=== PATIENT | female | born 1995 | race Caucasian/White ===

== ENCOUNTER 2020-01-18 12:47 | Emergency (ER) | payer BC, SELFPAY ==
--- NOTE | ~2020-01-18 | US_ITS ---
EXAMINATION: US venous doppler LE RT EXAM DATE: 01/18/2020 13:18 INDICATION: Right leg pain. TECHNIQUE: Multiple grayscale, color flow and Doppler images of the right lower extremity deep venous system were obtained and reviewed. There is no prior study for comparison. FINDINGS: The right common femoral, femoral and profunda veins demonstrate normal color flow, respira tory variation, augmentation and compressibility. Compressibility, color flow confirmed within the r ight popliteal, posterior tibial, peroneal, and greater saphenous veins. IMPRESSION: 1. No right lower extremity deep venous thrombosis. Reviewed, dictated and finalized at location A. S CLERK FOOD
[2020-01-18 12:49] VITALS: RESP 16
[2020-01-18 12:54] VITALS: BP 134/90; PULSE 68; RESP 20; TEMP 36.4; O2SAT 100
--- NOTE | 2020-01-18 14:29 | ED.LOWEXIN ---
HPI - Extremity Injury (Lower) General Chief Complaint: Extremity Injury, Lower Stated Complaint: r/o dvt Time Seen by Provider: 01/18/20 13:59 Source: patient Mode of arrival: ambulatory Limitations: no limitations History of Present Illness HPI Narrative: Patient is a 24-year-old female who presents to emergency department for evaluation of right calf pain noting mid calf pain that began Saturday after working out at the gym had concern for DVT notes constant aching pain worse with weightbearing activity and movement denies other injuries or complaints and on arrival is in no distress Related Data Home Medications Medication Instructions Recorded Confirmed etonogestrel-ethinyl estradiol 1 vag ring VAGINAL ONCE 01/18/20 01/18/20 [NuvaRing] Allergies Allergy/AdvReac Type Severity Reaction Status Date / Time Penicillins Allergy Unknown Rash Verified 01/18/20 13:57 Sulfa (Sulfonamide Allergy Unknown Rash Verified 01/18/20 13:57 Antibiotics) metronidazole [From Flagyl] Allergy Rash Verified 01/18/20 13:57 Review of Systems Review of Systems: All systems reviewed & are unremarkable except as noted in HPI and below PMFSH Social History Social History (Updated 01/18/20 @ 14:34 by Jordan Abbott PA-C) Smoking status: Never smoker Exam Narrative: Exam Narrative: GENERAL: Well-appearing, well-nourished, and in no acute distress. HEAD: Normocephalic, atraumatic. EYES: PERRLA and EOMI. ENT: Nares clear, no rhinorrhea or epistaxis. Mucous membranes moist. CHEST: Clear to auscultation. No respiratory distress. No wheezes rales or rhonchi HEART: Regular rate and rhythm. No murmur heard. Normal peripheral pulses. EXTREMITIES: Normal range of motion. No edema. Tenderness of the right calf SKIN: Warm, dry, no rash. NEURO: No focal deficits. Alert and oriented x3. Cranial nerves II through XII grossly intact. Normal speech and gait. Neurovascularly intact PSYCH: Normal mood and affect. Course Course Emergency Course: Patient in the room in no distress aware of case findings treatment plan and diagnosis Vital Signs Vital signs: Vital Signs Respiratory Rate 16 01/18/20 12:49 Temperature 97.5 F L 01/18/20 12:54 Pulse Rate 68 01/18/20 12:54 Respiratory Rate 20 02/17/20 12:54 Blood Pressure 134/90 01/18/20 12:54 Pulse Oximetry 100 01/18/20 12:54 MDM - Extremity Injury (Lower) MDM Narrative Medical decision making narrative: Patients injury or pain is consistent with musculoskeletal etiology. No signs of neurological or vascular compromise on exam. Compartments and tisues are soft without signs of compartment syndrome. Pain is felt appropriate for further evaluation on an outpatient basis. Imaging Data Radiologist's impression: ITS Impressions Venous Doppler Study 01/18/20 13:21 IMPRESSION: 1. No right lower extremity deep venous thrombosis. Discharge Plan Discharge Clinical Impression: Pain of right calf Patient Disposition: Home, Self-Care Condition: Stable Instructions: Antibiotic Form, Leg Pain (ED) Additional Instructions: Limited weight on the affected leg until able to bear weight without pain. Ice and elevate extremity. Pain medication as needed and directed. Follow up with your doctor for further care in the next 7 days. Return if symptoms worsen or concerns or any increase in redness swelling pain or fever over 100.5. Prescriptions: No Action etonogestrel-ethinyl estradiol [NuvaRing] 0.12-0.015 mg/24 hr Ring 1 vag ring VAGINAL ONCE RF: 0 Follow-up/Referrals: Leo,MD Stone [Primary Care Provider] - Stand Alone Forms: Work/School Release IP
== END 2020-01-18 14:50 | disposition home or self-care (01) ==
PROVIDERS: Emergency Provider Family Medicine; PCP Family Medicine
DX: M79.661 Pain in right lower leg (principal)
CPT/HCPCS: 93971; 99284

== ENCOUNTER 2021-11-19 12:04 | Emergency (ER) | payer BC, SELFPAY ==
--- NOTE | ~2021-11-19 | XR_ITS ---
EXAMINATION: XR hand RT min 3V DATE: 11/19/2021 12:24 INDICATION: Right hand injury and pain. TECHNIQUE: 3 views of right hand were obtained. COMPARISON: None. FINDINGS: Bone alignment is normal. No fracture. Joint spaces are well maintained. IMPRESSION: 1. Normal right hand. Reviewed, dictated and finalized at location A. LE CATCHER IMPRESSION: 1. Normal right hand.
[2021-11-19 12:24] VITALS: BP 133/83; PULSE 64; RESP 16; TEMP 36.6; O2SAT 100
--- NOTE | 2021-11-19 12:40 | ED.UPPEXIN ---
HPI - Extremity Injury (Upper) General Chief Complaint: Extremity Injury, Upper Stated Complaint: Right hand injury Source: patient and RN notes reviewed Limitations: no limitations History of Present Illness HPI narrative: The right-handed patient, previously healthy, presents with right hand injury. He states prior to arrival she was moving furnishings, and pinched her hand between a cabinet and truck wall. She complains of mild pain, decreased ROM and swelling especially at the fifth MCP J that is worse with motion, better with elevation or rest. No bleeding-but there is some mild swelling and rotational deformity of the small finger. Related Data Allergies Allergy/AdvReac Type Severity Reaction Status Date / Time Penicillins Allergy Unknown Rash Verified 11/19/21 12:11 Sulfa (Sulfonamide Allergy Unknown Rash Verified 11/19/21 12:11 Antibiotics) metronidazole [From Flagyl] Allergy Rash Verified 11/19/21 12:11 Review of Systems Review of Systems: General/Constitutional: No weight loss,fever Eyes: N0: Redness,discharge Ears/Nose/Throat: No: Epistaxis,ear discharge Respiratory: Denies: Hemoptysis Gastrointestinal: No Vomiting, Bleeding-rectal Skin: No Lumps, eruption Neurologic: No Focal Weakness,Sz Hematologic: Denies: Petechiae/Purpura Psychiatric: No: Suicida ideationl All Other Systems: Reviewed and Negative [facility] Social History Social History (Updated 01/18/20 @ 14:34 by Jordan Abbott PA-C) Smoking status: Never smoker Comments At time of signature, agree with nursing past medical, surgical, social and family history. There is no relevant family history pertinent to the presenting complaint Exam Narrative: General Appearance: Well appearing, conjunctiva clear Mouth/Throat: Normal appearing, Normal lips, Supple Respiratory: Airway patent, No respiratory distress MS-hand: Normal strength (mostly intact, limited flexion/extension by pain), Tenderness (fifth MCPJ and proximal MC, with mild decreased ROM), Swelling (MCP J fifth), Other (no anterior drawer, no collateral laxity, some rotational deformity, swelling) Skin: Warm, Dry, Normal color Neurological: A&O x3, , Normal affect Course Course Emergency Course: Films visualized, interpreted by radiologist, agree, normal see report Vital Signs Vital signs: Vital Signs Temperature 97.9 F 11/19/21 12:24 Pulse Rate 64 11/19/21 12:24 Respiratory Rate 16 11/19/21 12:24 Blood Pressure 133/83 11/19/21 12:24 Pulse Oximetry 100 11/19/21 12:24 Temperature 97.9 F 11/19/21 12:24 Pulse Rate 64 11/19/21 12:24 Respiratory Rate 16 11/19/21 12:24 Blood Pressure 133/83 11/19/21 12:24 Pulse Oximetry 100 11/19/21 12:24 Discharge Plan Discharge Clinical Impression: Contusion of hand, right Qualifiers: Encounter type: initial encounter Qualified Code(s): S60.221A - Contusion of right hand, initial encounter Patient Disposition: Home, Self-Care Condition: Stable Instructions: Hand Sprain (ED) Additional Instructions: You may use OTC pain medicines; may also try ice the first half week then heat See PMD or orthopedics in follow-up Prescriptions: New tramadol 50 mg tablet 50 - 75 mg PO BID PRN (Reason: pain) Qty: 20 RF: 0 Follow-up/Referrals: PHYSICIAN,ADMISSIONS NURSE [Primary Care Provider] -
== END 2021-11-19 12:48 | disposition home or self-care (01) ==
PROVIDERS: Emergency Provider Emergency Medicine
DX: S60.221A Contusion of right hand, initial encounter (principal); X58.XXXA Exposure to other specified factors, initial encounter
CPT/HCPCS: 73130; 99213; G0463

== ENCOUNTER 2021-11-26 18:14 | Emergency (ER) | payer BC, SELFPAY ==
--- NOTE | ~2021-11-26 | CT_ITS ---
EXAMINATION: CT hand RT wo con DATE: 11/26/2021 19:20 INDICATION: Smashed right hand between door and an end table with bruising at both sides of the hand. TECHNIQUE: High resolution computed tomography (CT) of the right hand and wrist was performed without intravenous contrast. Additional sagittal and coronal reconstructions were performed. Automated expo sure control and iterative reconstruction technique were employed. The dose-length product was 520.24 mGy-cm. COMPARISON: Radiograph dated 11/19/2021 FINDINGS: Bone alignment is normal. No fracture. Joint spaces are normal. 14 x 7 x 9 mm soft tissue density in the palmar subcutaneous fat situated between the fourth and fifth metacarpophalangeal joints. Soft ti ssues are otherwise unremarkable. IMPRESSION: 1. No osseous abnormality. 2. 14 x 7 x 5 mm soft tissue density in the subcutaneous tissues situated between the palmar aspect o f the fourth and fifth metacarpophalangeal joints which in the setting of recent trauma suggests a sm all hematoma. Reviewed, dictated and finalized at location H. RAL OFFICE REPAIRER IMPRESSION: 1. No osseous abnormality. 2. 14 x 7 x 5 mm soft tissue density in the subcutaneous tissues situated betwe en the palmar aspect of the fourth and fifth metacarpophalangeal joints which i n the setting of recent trauma suggests a small hematoma.
[2021-11-26 18:21] VITALS: BP 149/94; PULSE 88; RESP 12; TEMP 36.8; O2SAT 99
--- NOTE | 2021-11-26 19:17 | ED.GENADULT ---
HPI - General Adult General Chief complaint: Extremity Injury, Upper Stated complaint: hand injury Time Seen by Provider: 11/26/21 18:39 Source: patient Mode of arrival: ambulatory Limitations: no limitations History of Present Illness HPI narrative: Patient presents for evaluation of right hand pain. She indicates on 19 November she got her hand caught between an end table and a truck wall when moving furniture. She was seen at [facility] and had an x ray which was normal. She states she received a script for tramadol but did not take the medication because she does not like the way tramadol makes her feel. She continues to have pain in the third through fifth digits of the right hand. Pain is constant, shooting, rate 8-10/10 in severity. Reports numbness and tingling shooting from her fourth and fifth digits of her right upper extremity as well as pain that shoots in the direction. She is taking ibuprofen for her symptoms. She now reports bruising over the dorsal and palmar aspect of the right hand. She attempted to make a splint at home with popsicle sticks taped her fourth and fifth digit together. She is right hand dominant. No additional complaints or concerns. Related Data Allergies Allergy/AdvReac Type Severity Reaction Status Date / Time Penicillins Allergy Unknown Rash Verified 11/26/21 18:32 Sulfa (Sulfonamide Allergy Unknown Rash Verified 11/26/21 18:32 Antibiotics) metronidazole [From Flagyl] Allergy Rash Verified 11/26/21 18:32 Review of Systems Review of Systems: CONSTITUTIONAL: Denies fever, chills, or sweats. EYES: Denies visual changes, redness, or discharge. ENT: Denies rhinorrhea, congestion, sore throat, or otalgia. CARDIOVASCULAR: Denies chest pain, palpitations, or edema. RESPIRATORY: Denies cough or dyspnea. GASTROINTESTINAL: Denies abdominal pain, nausea, vomiting, or diarrhea. GENITOURINARY: Denies dysuria or hematuria. SKIN: Reports bruising to the right hand MUSCULOSKELETAL: Pain in the right hand, most prominent in the fourth and fifth digits. NEUROLOGIC: Reports numbness and tingling in the fourth and fifth digits of the right hand moving proximally up the extremity. Denies headache, dizziness, or weakness. PSYCHIATRIC: Denies anxiety or depression. 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 HEAD: Normocephalic, atraumatic. EYES: PERRLA and EOMI. ENT: Nares clear, no rhinorrhea or epistaxis. Mucous membranes moist. Oropharynx without tonsillar hypertrophy exudate or other lesions. Bilateral TMs pearly cabrera nonbulging NECK: Supple. No adenopathy or masses. No carotid bruits or JVD CHEST: Clear to auscultation. No respiratory distress. No wheezes rales or rhonchi HEART: Regular rate and rhythm. No murmur heard. Normal peripheral pulses. ABDOMEN: Soft, nontender, nondistended, normal active bowel sounds. EXTREMITIES: Tenderness over the MCP of the third, fourth, fifth digits of the right hand and throughout the proximal phalanges of third, fourth, fifth digits. Refuses to perform full hand toll line mechanic secondary to pain. There is soft tissue swelling noted overlying the palmar aspect of the
--- NOTE | 2021-11-26 19:19 | PC.NURSE ---
Pt in XRAY at this time.
[2021-11-26 19:34] VITALS: BP 133/89; PULSE 80; RESP 17; O2SAT 98
[2021-11-26] MEDS: KETOROLAC (*BKC) 60 MG/2 ML VIAL IM (19:43)
[2021-11-26 20:30] VITALS: BP 137/82; PULSE 80; RESP 15; O2SAT 99
== END 2021-11-26 20:32 | disposition home or self-care (01) ==
PROVIDERS: Emergency Provider Nurse Practitioner
DX: S60.221A Contusion of right hand, initial encounter (principal); W23.0XXA Caught, crushed, jammed, or pinched between moving objects, initial encounter
CPT/HCPCS: 73200; 81025; 96372; 99284; J1885

== ENCOUNTER 2022-01-31 01:42 | Emergency (ER) | payer BC, SELFPAY ==
[2022-01-31] VITALS (8 sets, daily range): BP systolic 130–153; BP diastolic 82–107; PULSE 64–73; RESP 15–18; TEMP 36.4–36.9; O2SAT 98–100
--- NOTE | 2022-01-31 02:14 | ECG_ITS ---
Measurements Intervals [place] Rate: 69 P: 46 NM: 151 QRS: 1 QRSD: 98 T: -4 QT: 364 QTc: 392 Interpretive Statements SINUS RHYTHM MODERATE VOLTAGE CRITERIA FOR LVH, CONSIDER NORMAL VARIANT [MEETS CRITERIA IN ONE OF: R(aVL), S(V1), R(V5), R(V5/V6)+S(V1)] ABNORMAL EKG Electronically Signed On 01-31-2022 9:08:03 INSURANCE VERIFICATION REP by Erick Roberts M.D.
[2022-01-31] MEDS: SODIUM CHLORIDE 0.9% IV 1,000 ML 999 ML IV CONT (02:39)
[2022-01-31 02:47] LABS: Basophils Absolute Auto 0.1 K/mm3 (0.0-0.1); Basophils Percent Auto 0.5 % (0.2-1.2); Eosinophils Absolute Auto 0.1 K/mm3 (0-0.3); Eosinophils Percent Auto 1.2 % (0-4.4); Hematocrit 39.4 % (37.0-47.0); Hemoglobin 13.6 g/dL (12.0-15.0); Immature Granulocyte Absolute 0.05 K/mm3 (0.00-0.031); Immature Granulocyte Percent A 0.5 % (0-0.5); Lymphocytes Absolute Auto 2.81 K/mm3 (0.9-3.2); Lymphocytes Percent Auto 28.6 % (18.3-44.2); Mean Corpuscular HGB Conc 34.5 g/dl (32-36); Mean Corpuscular Hemoglobin 29.1 pg (26-34); Mean Corpuscular Volume 84.4 fl (80-100); Mean Platelet Volume 10.6 fl (7.4-10.4); Monocytes Absolute Auto 0.7 K/mm3 (0.1-0.6); Monocytes Percent Auto 7.5 % (2.6-8.5); Neutrophils Absolute Auto 6.1 K/mm3 (1.3-6.7); Neutrophils Percent Auto 61.7 % (45.5-73.1); Platelet Count Result 253 k/mm3 (150-375); Red Blood Count 4.67 M/mm3 (4.2-5.4); Red Cell Distribution Width 12.2 % (11.5-14.5); White Blood Count 9.8 K/mm3 (4.5-10.0)
[2022-01-31 03:07] LABS: Alanine Aminotransferase 18 U/L (4-35); Albumin Level 4.6 g/dL (3.5-5.1); Alkaline Phosphatase 67 U/L (38-126); Anion Gap 7 mmol/L (8-16); Aspartate Amino Transferase 27 U/L (14-36); Bilirubin,Total 0.5 mg/dL (0.2-1.3); Blood Urea Nitrogen 11 mg/dL (7-17); Carbon Dioxide 25 mmol/L (22-30); Chloride 104 mmol/L (98-107); Estimated CRCL calculation 163 ml/min; Estimated Glomerular Filt Rate > 60; Glucose 93 mg/dL (65-110); Sodium 136 mmol/L (137-145)
--- NOTE | 2022-01-31 03:39 | ED.DIZZY ---
HPI - Dizziness General Chief Complaint: Dizziness Stated Complaint: Dizziness, Limp Numbness Time Seen by Provider: 01/31/22 03:33 Source: patient History of Present Illness HPI Narrative: Patient presents with dizziness. Reports she was at work standing down and stood up and felt dizzy with some numbness in her fingers. She sat down for approximately 30 minutes and her symptoms did not resolve so she came to the ER for evaluation. She has a sensation of feeling like she is rocking more she is in a chair that is spinning. She denies any nausea or vomiting reports bilateral paresthesias but denies any focal numbness or weakness she denies any headache or changes in vision. She denies any chest pain or shortness of breath. Reports her symptoms started improved on arrival to the ER Related Data Allergies Allergy/AdvReac Type Severity Reaction Status Date / Time Penicillins Allergy Unknown Rash Verified 01/31/22 01:55 Sulfa (Sulfonamide Allergy Unknown Rash Verified 01/31/22 01:55 Antibiotics) metronidazole [From Flagyl] Allergy Rash Verified 01/31/22 01:55 Review of Systems Review of Systems: CONSTITUTIONAL: Denies fever, chills, or sweats. EYES: Denies visual changes, redness, or discharge. ENT: Denies rhinorrhea, congestion, sore throat, or otalgia. CARDIOVASCULAR: Denies chest pain, palpitations, or edema. RESPIRATORY: Denies cough or dyspnea. GASTROINTESTINAL: Denies abdominal pain, nausea, vomiting, or diarrhea. GENITOURINARY: Denies dysuria or hematuria. SKIN: Denies rash or itching. MUSCULOSKELETAL: Denies back pain, joint pain, or myalgia. NEUROLOGIC: Denies headache, numbness, or weakness. PSYCHIATRIC: Denies anxiety or depression. 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 HEAD: Normocephalic, atraumatic. EYES: PERRLA and EOMI. ENT: Nares clear, no rhinorrhea or epistaxis. Mucous membranes moist. NECK: Supple. No masses. No JVD EXTREMITIES: Normal range of motion. No edema. SKIN: Warm, dry, no rash. NEURO: Cranial nerves II through XII are intact patient has 5 out of 5 strength in all extremities sensation intact to light touch in all extremities no dysdiadochokinesia no dysmetria on [id number] alert and oriented x3. PSYCH: Normal mood and affect. Course Vital Signs Vital signs: Vital Signs Temperature 36.9 C 01/31/22 01:49 Pulse Rate 73 01/31/22 01:49 Respiratory Rate 18 01/31/22 01:49 Blood Pressure 153/107 H 01/31/22 01:49 Pulse Oximetry 100 01/31/22 01:49 Temperature 36.4 C L 01/31/22 04:14 Pulse Rate 68 01/31/22 04:14 Respiratory Rate 16 01/31/22 04:14 Blood Pressure 130/85 01/31/22 04:14 Pulse Oximetry 98 01/31/22 04:14 MDM - Dizziness MDM Narrative Medical decision making narrative: H&P as above, vss, pt looks clinically well, exam without focal neurological deficits, labs clinically unremarkable, additional labs/img considered, symptomatic relief available as needed, on reevaluation pt continues to looks clinically well. Suspect peripheral vertigo, dns CVA, severe sepsis, severe dehydration. plan to tx/monitor as op w/ pcm f/u findings/plan discussed with pt, pt agree/comforta
[2022-01-31] MEDS: MECLIZINE HCL 25 MG TABLET PO (03:55)
== END 2022-01-31 04:17 | disposition home or self-care (01) ==
PROVIDERS: Emergency Provider Emergency Medicine
DX: R42 Dizziness and giddiness (principal); R94.31 Abnormal electrocardiogram [ECG] [EKG]
CPT/HCPCS: 36415; 80053; 81025; 85025; 93005; 96360; 99283; A9270; J7030

== ENCOUNTER 2022-03-21 03:52 | Emergency (ER) | payer SELFPAY ==
[2022-03-21 03:58] VITALS: BP 145/90; PULSE 80; RESP 18; TEMP 36.6; O2SAT 100
[2022-03-21 04:35] LABS: Basophils Percent Auto 0.3 % (0.2-1.2); Eosinophils Absolute Auto 0.1 K/mm3 (0-0.3); Eosinophils Percent Auto 1.2 % (0-4.4); Hematocrit 40.1 % (37.0-47.0); Hemoglobin 13.3 g/dL (12.0-15.0); Immature Granulocyte Absolute 0.15 K/mm3 (0.00-0.031); Immature Granulocyte Percent A 1.3 % (0-0.5); Lymphocytes Absolute Auto 3.38 K/mm3 (0.9-3.2); Lymphocytes Percent Auto 29.5 % (18.3-44.2); Mean Corpuscular HGB Conc 33.2 g/dl (32-36); Mean Corpuscular Hemoglobin 28.7 pg (26-34); Mean Corpuscular Volume 86.6 fl (80-100); Mean Platelet Volume 10.6 fl (7.4-10.4); Monocytes Absolute Auto 0.8 K/mm3 (0.1-0.6); Monocytes Percent Auto 6.9 % (2.6-8.5); Neutrophils Percent Auto 60.8 % (45.5-73.1); Platelet Count Result 265 k/mm3 (150-375); Red Blood Count 4.63 M/mm3 (4.2-5.4); White Blood Count 11.5 K/mm3 (4.5-10.0)
[2022-03-21 04:41] LABS: Alanine Aminotransferase 19 U/L (4-35); Albumin Level 4.2 g/dL (3.5-5.1); Alkaline Phosphatase 59 U/L (38-126); Anion Gap 8 mmol/L (8-16); Aspartate Amino Transferase 21 U/L (14-36); Bilirubin,Total 0.5 mg/dL (0.2-1.3); Blood Urea Nitrogen 5 mg/dL (7-17); Calcium 8.8 mg/dL (8.4-10.2); Carbon Dioxide 21 mmol/L (22-30); Chloride 105 mmol/L (98-107); Estimated CRCL calculation 203 ml/min; Estimated Glomerular Filt Rate > 60; Glucose 97 mg/dL (65-110); Potassium 3.9 mmol/L (3.4-5.0); Sodium 134 mmol/L (137-145)
[2022-03-21 04:45] LABS: INR 1.1; Prothrombin Time 13.4 Seconds (11.1-14.7)
[2022-03-21 04:46] LABS: Partial Thromboplastin Time 28.9 SECONDS (22.3-36.8)
[2022-03-21 05:07] LABS: Add Urine Microscopic? YES; Appearance Urine Clear (Clear); Bilirubin Urine Negative (Negative); Blood Urine 3+ (Negative); Color Urine Yellow (Yellow); Glucose Urine UA Negative (Negative); Ketones Urine Negative (Negative); Leukocyte Esterase Ur Negative LEU/UL (Negative); Nitrate Urine Negative (Negative); Protein Urine Trace mg/dL (Negative); Specific Grav Ur 1.025 (1.001-1.035); Urobilinogen Urine 0.2 mg/dL (<2.0)
--- NOTE | 2022-03-21 05:08 | ED.BACK ---
HPI - Back Pain/Injury General Chief Complaint: Vaginal Bleeding Stated Complaint: 10 weeks preg with bright red bleeding Time Seen by Provider: 03/21/22 04:03 Source: patient, family and RN notes reviewed Mode of arrival: ambulatory Limitations: no limitations History of Present Illness HPI Narrative: 26-year-old female that is approximately 10 weeks and has follow-up with [facility] presents to the emergency department for evaluation of acute onset of vaginal bleeding tonight. Patient states she was having sexual intercourse when she had onset of bright red blood per vagina. Patient states since the initial bleeding that the bleeding has since improved. Patient does have a prior ultrasound confirming IUP. Patient denies any pain or cramping with this bleeding. Patient reports normal vaginal sex without any other insertions. Patient believes her blood type is a positive but was not completely sure. Related Data Allergies Allergy/AdvReac Type Severity Reaction Status Date / Time Penicillins Allergy Unknown Rash Verified 01/31/22 01:55 Sulfa (Sulfonamide Allergy Unknown Rash Verified 01/31/22 01:55 Antibiotics) metronidazole [From Flagyl] Allergy Rash Verified 01/31/22 01:55 Review of Systems Review of Systems: CONSTITUTIONAL: Denies fever, chills, or sweats. EYES: Denies visual changes, redness, or discharge. CARDIOVASCULAR: Denies chest pain, palpitations, or edema. RESPIRATORY: Denies cough or dyspnea. GASTROINTESTINAL: See HPI GENITOURINARY: See HPI SKIN: Denies rash or itching. MUSCULOSKELETAL: Denies back pain, joint pain, or myalgia. NEUROLOGIC: Denies headache, numbness, or weakness. 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 HEAD: normocephalic, atraumatic. EYES: PERRLA/EOMI, conjunctivae clear. NOSE: Normal no drainage RESPIRATORY: Airway patent, respirations nonlabored CARDIOVASCULAR: Regular rate and rhythm without murmurs rubs or gallops. ABDOMINAL: Soft, nontender, nondistended, normal bowel sounds. On pelvic ultrasound patient did have a visualized heart beat but was unable to be measured by M-mode ultrasound. On pelvic exam patient had a small amount of vaginal bleeding coming from the cervix with no active hemorrhage. No evidence of vaginal wall injury. MUSCULOSKELETAL: Moves all extremities. Strength/ROM intact, No edema, No calf tenderness. SKIN: Warm, dry. Normal Color Course Course Emergency Course: Patient's blood type was O+. Patient was encouraged to have close follow-up with DENTAL PRACTICE MANAGER. All question concerns were addressed. Vital Signs Vital signs: Vital Signs Temperature 97.8 F 03/21/22 03:58 Pulse Rate 80 03/21/22 03:58 Respiratory Rate 18 03/21/22 03:58 Blood Pressure 145/90 H 03/21/22 03:58 Pulse Oximetry 100 03/21/22 03:58 Temperature 97.8 F 03/21/22 03:58 Pulse Rate 80 03/21/22 05:55 Respiratory Rate 16 03/21/22 05:55 Blood Pressure 130/72 03/21/22 05:55 Pulse Oximetry 100 03/21/22 05:55 MDM - Back Pain/Injury Lab Data Attestation: I reviewed the patient's lab results. Result diagrams: 03/21/22 04:17 03/21/22 04:17 Labs: Lab Results 03/21/22 03/21/22 03/21/22 Range/Units
[2022-03-21 05:16] LABS: Bacteria Urine Trace /hpf; Mucus Urine Moderate /lpf; RBC Urine >75 /hpf (0-2); Squamous Epithelial Cell Urine Rare /hpf (Few); WBC Urine 0-3 /hpf
[2022-03-21 05:55] VITALS: BP 130/72; PULSE 80; RESP 16; O2SAT 100
== END 2022-03-21 05:58 | disposition home or self-care (01) ==
PROVIDERS: Emergency Provider Emergency Medicine
DX: O20.9 Hemorrhage in early pregnancy, unspecified (principal); Z3A.10 10 weeks gestation of pregnancy
CPT/HCPCS: 36415; 80053; 81001; 84702; 85025; 85610; 85730; 86900; 86901; 99283

== ENCOUNTER 2024-05-13 12:45 | Outpatient (CLI) | payer BC, SELFPAY ==
--- NOTE | ~2024-05-13 | MR_ITS ---
MRI of the right knee Clinical history: Pain Technique: Coronal proton density and proton density-weighted images, sagittal proton-density and T2 fat-sat images, and axial proton-density fat-saturated images were acquired. Findings: Anterior and posterior cruciate ligaments are intact. Medial collateral ligament and the la teral collateral ligament conflux are intact. Popliteus tendon is intact. Medial and lateral menisci are intact, without evidence of tear. Articular cartilage is well preserved throughout the knee. Bone marrow signals are unremarkable. Extensor mechanism is intact. No joint effusion or Mcneill's cyst. There is a ganglion cyst at the post erior medial aspect of the knee, measuring 3.2 x 1.2 x 2.6 cm in size Impression: 3.2 x 1.2 x 2.6 ganglion cyst or bursa at the posterior medial aspect of the knee at the level of the distal femur, as detailed above. No other significant findings. Reviewed, dictated and finalized at [facility]. Impression: 3.2 x 1.2 x 2.6 ganglion cyst or bursa at the posterior medial aspect of the kn ee at the level of the distal femur, as detailed above. No other significant findings.
== END 2024-05-13 12:46 ==
LOC: MICIMG 12:47
PROVIDERS: PCP Nurse Practitioner Family; Visit Provider Nurse Practitioner Family
DX: M25.561 Pain in right knee (principal)
CPT/HCPCS: 73721

== ENCOUNTER 2025-10-09 18:52 | Emergency (ER) | payer OTHER, BC, SELFPAY ==
--- NOTE | ~2025-10-09 | XR_ITS ---
EXAMINATION: XR ankle LT min 3V, 10/09/2025 19:01 [employer] SERVICES REPRESENTATIVE HISTORY: fall into hole this evening. Lateral pain COMPARISON: No comparisons available. Findings: No acute fracture or malalignment. No significant degenerative changes. Soft tissues unremarkable. Impression: No acute fracture or malalignment. Reviewed, dictated and finalized at location P. FORCE SERVICES REPRESENTATIVE Impression: No acute fracture or malalignment.
--- OUTSIDE RECORDS SUMMARY | 2025-10-09 18:55 | XMS_ITS | Encounter Summary ---
Author Organization [facility] Healthcare Address [address] [place] [address] Care Team Providers Care Systems Software Manager Name Role Phone Jenna Olson MD Primary Care Provider Reason for Visit * Reason Onset Date Comments Missed Visit 01/01/2024 Due to her misse d visit, I left a message on her voicemail regarding her next appointment date/ time. No Show 01/01/2024 I called patient . She states that she forgot to call to let you know that I wasn't coming for my last scheduled appointment. Encounter Details Date Type Department Care Team (Late st Contact Info) Description 01/01/2024 Documentation [facility] Physical Therapy [address] [place] [id number] Eva Bassett PT Missed Visit (Due to her missed visit, I left a message on her voicemail regarding her next appointment date/ time.); No Show (I called patient. 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
--- OUTSIDE RECORDS SUMMARY | 2025-10-09 18:55 | XMS_ITS | Clinical Summary ---
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 This disclosure is being madepursuant to the Care Everywhere program and may not contain all information available regarding this patient. Last updated 18.[facility] Allergies Active Allergy Reactions Criticality Noted Date Comments Penicillins Rash Medium 03/21/2017 Sulfa Drugs Rash Medium 03/21/2017 Medications * Be aware that medications may not be up to date on this document. Alwaysverify current medications with the patient. ibuprofen (MOTRIN) 200 MG tabletIndicatio ns:Inflammation ,Mild to Moderate Pain Take 600 mg by mouth every 6 hours as needed for Pain Reasons: Inflammation, Mild to Moderate Pain Active Active Problems Problem Noted Date Diagnosed Date Acute left ankle pain doi 03/20/17 03/21/2017 Social History Tobacco Use Types Packs/Day Years Used Date Smoking Tobacco: Never Smokeless Tobacco: Never Alcohol Use Standard Drinks/Week Comments No 0 (1 standard drink = 0.6 oz pur e alcohol) Comments No Sex and Gender Information Value Date Recorded Sex Assigned at Not on file Legal Sex Female 11:39 AM CDT Gender Identity Not on file Sexual Orientation Not on file 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[employer] Not on file Not on file Not on file Home Health Care Not on file Not on file Not on file Last Filed Vital Signs Vital Sign Reading Time Taken Comments Blood Pressure 124/80 03/29/2017 1:36 PM CDT Pulse - - Temperature 36.2 C (97.1 F) 03/29/2017 1:36 PM CDT Respiratory Rate 16 03/29/2017 1:36 PM CDT Oxygen Saturation - - Inhaled Oxygen Concentration - - Weight 112 kg (247 lb) 03/29/2017 1:36 PM CDT Height 157.5 cm (5' 2) 03/29/2017 1:36 PM CDT Body Mass Index 45.18 03/29/2017 1:36 PM CDT Plan of Treatment Health Maintenance Due Date Last Done Comments HIV SCREENING 2011 HEPATITIS C SCREENING 11/16/2014 DTAP/TDAP/TD VACCINES (1 - Tdap) 2015 HEPATITIS B VACCINE (1 of 3 - 19+ 3-dose series) 2015 HPV VACCINE (1 - 3-dose SCDM series) 2023 DEPRESSION SCREENING 12/02/2024 COVID-19 VACCINE (1 - 2023-2 5 season) 2025 INFLUENZA VACCINE (#1) 2025 ZOSTER VACCINE (1 of 2) 2046 HIB VACCINE Aged Out No longer eligi ble based on patient's age to complete this topic MENINGOCOCCAL (Group B) VACC INE SHARED DECISION-MAKING Aged Out No longer eligibl e based on patient's age to complete this topic MENINGOCOCCAL GROUPS A/C/Y/W VACCINE Aged Out No longer eligible b ased on patient's age to complete this topic PNEUMOCOCCAL VACCINE Aged Out No long er eligible based on patient's age to complete this topic Insurance [id number] Address: [id number] [place] [address]
--- OUTSIDE RECORDS SUMMARY | 2025-10-09 18:55 | XMS_ITS | Patient Health Record ---
Author Organization [facility] Address [address] [place] [address] Care Team Providers Care Health Unit Clerk Name Role Phone Delfina Damon Unavailable [phone] Reason For Referral No Information Social History Social History Additional Details Category Social Info Options Details Migrated Social History Migrated Social History Alcohol Intake: Occasional 10/04/2020,Tobacco Years: Current some days smoker 10/04/2020,Smoking Status: 4 10/04/2020 Plan Of Treatment No Information Insurance Providers Payer Name Payer Address Payer Phone Subscriber Number Group Number Insured Name Patient Relationship to Insured Coverage Start Date Coverage End Date [facility] [address] [place] [address] [id number] BRAD BOJORQUEZ Child - Insured has Financial Responsibility
--- OUTSIDE RECORDS SUMMARY | 2025-10-09 18:55 | XMS_ITS | Data Portability ---
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 Plan of Treatment Reminders Order Date Submit Date Provider Last Modified By Organization Details Last Modified Time Details Appointments OB RETURN EST 2024 01:15P Herman SCHUSTER CNM Not available Not available Not available Lab hemoglobi n A1c, QN, blood 2024 [employer], [address] [place], [address], 10/04/2025 14:07:12 abo group + rh type, blood 2024 [facility], [address] [facility], [place], [address], 10/02/2025 16:49:43 CBC w/ auto diff 2024 025 [employer], [address] [place], [address], 10/04/2025 14:07:11 CT + NG DNA, PCR, unspecifi ed specimen 2024 025 [employer], [address] [place], [address], 09/30/2025 15:29:26 drug of abuse panel, urine 2024 025 [employer], [address] [place], [address], 09/30/2025 12:34:29 obstetric screen + HIV, serum or blood 2024 [facility], [address] [place], [address], 10/04/2025 14:07:09 measles igg Ab, serum 2024 [facility], [address] [place], [address], 10/02/2025 16:49:42 culture, urine 2024 [facility], [address] [place], [address], 10/02/2025 16:49:44 varicella -zoster igg Ab screen, serum 2024 [facility], [address] [place], [address], 10/02/2025 16:49:41 hemoglobi nopathy profile, blood 2024 [facility], [address] [place], [address], 10/02/2025 16:49:42 antibody screen, serum or plasma 2024 025 [facility], [address] [place], [address], 10/02/2025 16:49:43 TSH, serum or plasma 2024 025 [employer] [facility], [address] [place], [address], 10/04/2025 14:07:13 bacterial vaginosis + vaginitis panel, vaginal 2024 025 [employer] [facility], [address] [place], [address], 09/02/2025 19:58:40 test, urine 2024 025 [email or web address] [facility], [address] [place], [address], 08/30/2025 11:02:54 unlisted lab - Pap reflex hold 2024 025 [email or web address] [facility], [address] [place], [address], 07/14/2025 10:54:44 pap, LB 2024 025 CAIT [facility], [address] [place], [address], 07/13/2025 14:14:32 unlisted lab - Pap reflex hold 2023 [facility]24 [email or web address], [address] [place] [address], [address], 12/09/2023 15:23:19 pap, LB 2023 024 CAIT [facility], [address] [place], [address], 12/12/2023 13:29:08 Referral pelvic floor therapy referral - Stress incontine nce 2024 025 [email or web address] [facility] [place], [address] [facility], [place], [address], 07/15/2025 13:48:19 pelvic floor therapy referral [address] [facility], [address] [place], [address], 12/31/2023 14:59:12 Procedures None recorded. Surgeries None recorded. Imaging US, transvagi nal 2024 025 CAIT Not available 09/03/2025 15:09:06 Medication Orders nitrofura ntoin monohydra te/macroc rystals 100 mg capsule 2024 025 CAIT [id number], [address] [place], [place], [id number], 09/01/2025 14:17:10 NuvaRing 0.12 mg-0.015 mg/24 hr vaginal 2023 024 [email or web address] [facility] #[id number], [address] [place], [place], [id number], 08/30/2025 10:27:08 Patient TargetsNo targets recorded. Patient Instructions Encounter Date Encounter Id Patient Instructions Last Modified By Organization Details Last Modified Time 12/09/2023 [id number] body mass index: care instructions [email or web address] Not available 12/09/2023 13:45:08 learning about control [email or web address] Not available 12/09/2023 13:45:08 07/07/2025 [id number] body mass index: care instructions Not available 07/07/2025 13:35:22 learning about control Not available 07/07/2025 13:35:23 Reason for Referral Pelvic Floor Therapy Referra l for Urinary incontinence Referring Physician: Carmel Mccauley TRACK SERVICE WORKER, Encounter Date: 12/09/2023 Pelvic Floor Therapy Referra l for Female urinary stress incontinence Stress incontinence Referring Physician: Maciej Schuster TRACK SERVICE WORKER, Encounter Date: 07/07/2025 Results Created Date Observation Date Name Description Value Unit Range Abnormal Flag Note LastModifiedBy Organization Detail LastModifiedTime 09/02/2009/02/2025 VAGIN ITIS PLUS STD PANEL bacterial vaginosis BV neg negati ve normal Not [place], [address], 09/02/2025 19:58:40 09/02/20 25 09/02/2025 VAGIN ITIS PLUS STD PANEL hubert species C. spp POS negati ve abnormal Not Available [address], [address], 09/02/2025 19:58:40 09/02/20 25 09/02/2025 VAGIN ITIS PLUS STD PANEL hubert glabrata C. gla neg negati ve normal Not Available [address], [address], 09/02/2025 19:58:40 09/02/20 25 09/02/2025 VAGIN ITIS PLUS STD PANEL trichomonas vaginalis CV/TV TRICH neg negati ve normal Not Available [address], [address], 09/02/2025 19:58:40 09/02/2009/02/2025 VAGIN ITIS PLUS STD PANEL chlamydia trachomatis CT neg negati ve normal This repor t is inten ded for us in clini regan monit oring and manag ement of patie nts. It is not inten ded for use in medic al-le gal appli catio n. Not Available [address], [address], 09/02/2025 19:58:40 09/02/2009/02/2025 VAGIN ITIS PLUS STD PANEL neisseria gonorrhoeae GC neg negati ve normal This repor t is inten ded for us in clini regan monit oring and manag ement of patie nts. It is not inten ded for use in medic al-le gal appli catio n. Not Available [address], [address], 09/02/2025 19:58:40 12/09/19 24 12/12/2023 THINP REP TIS PAP clinical information: normal None given Not Available [employer] [facility] [address] [place], [address], 12/12/2023 13:29:08 12/09/19 24 12/12/2023 THINP REP TIS PAP LMP: normal NONE GIVEN Not Available [facility] [address] [place] [address], [address], 12/12/2023 13:29:08 12/09/19 24 12/12/2023 THINP REP TIS PAP prev. Pap: normal NONE GIVEN Not Available [address], [address], 12/12/2023 13:29:08 12/09/19 24 12/12/2023 THINP REP TIS PAP prev. BX: normal NONE GIVEN Not Available [address], [address], 12/12/2023 13:29:08 12/09/19 24 12/12/2023 THINP REP TIS PAP source: normal Cervi x Not Available [address], [address], 12/12/2023 13:29:08 12/09/19 24 12/12/2023 THINP REP TIS PAP statement of adequacy: normal Satis facto ry for evalu ation . Endoc ervic al/tr ansfo rmati on zone compo nent prese nt. Age and/o r menst rual statu s not provi ded Not Available [address], [address], 12/12/2023 13:29:08 12/09/19 24 12/12/2023 THINP REP TIS PAP interpretati on/result: normal Cytol ogy Resul ts: Negat jason for intra epith elial lesio n or rg garcia . Not Available [address], [address], 12/12/2023 13:29:08 12/09/19 24 12/12/2023 THINP REP TIS PAP comment: normal This Pap test has been evalu ated with compu ter stevenson romeo [employer] o[employer]y . Not Available [address], [address], 12/12/2023 13:29:08 12/09/19 24 12/12/2023 THINP REP TIS PAP cytotechnolo gist: normal MMD, CT( CP) CT Scree maurisio Locat ion: [address] [facility] [place] [address] Not Available [address] [address] [place], [address], 12/12/2023 13:29:08 12/09/19 24 12/12/2023 THINP REP TIS PAP comment EXPLA NATOR Y NOTE: The Pap is a scree maurisio test for cervi regan cance r. It is not a diagn ostic test and is subje ct to false negat jason and false posit jason resul ts. It is most relia ble when a satis facto ry sampl e, regul rosanne obtai shawn, is submi tted with relev ant clini regan findi ngs and histo ry, and when the Pap resul t is evalu ated along with histo janice and curre nt clini regan infor matio n. Not Available [address] [address] [place], [address], 12/12/2023 13:29:08 07/07/20 25 07/13/2025 THINP REP TIS PAP clinical information: normal None given Not Available [facility] [address] [address] [place], [address], 07/13/2025 14:14:32 07/07/20 25 07/13/2025 THINP REP TIS PAP LMP: normal NONE GIVEN Not Available [facility] [address] [address] [place], [address], 07/13/2025 14:14:32 07/07/20 25 07/13/2025 THINP REP TIS PAP prev. Pap: normal NONE GIVEN Not Available [address] [address] [place], [address], 07/13/2025 14:14:32 07/07/20 25 07/13/2025 THINP REP TIS PAP prev. BX: normal NONE GIVEN Not Available [address] [address] [place], [address], 07/13/2025 14:14:32 07/07/20 25 07/13/2025 THINP REP TIS PAP source: normal Cervi x Not Available [address] [address] [place], [address], 07/13/2025 14:14:32 07/07/20 25 07/13/2025 THINP REP TIS PAP statement of adequacy: normal Satis facto ry for evalu ation . Endoc ervic al/tr ansfo rmati on zone compo nent prese nt. Age and/o r menst rual statu s not provi ded Not Available [address] [address] [address], [place], [address], 07/13/2025 14:14:32 07/07/20 25 07/13/2025 THINP REP TIS PAP interpretati on/result: normal Cytol ogy Resul ts: Negat jason for intra epith elial lesio n or malig radha . Not Available [address] [address] [address], [place], [address], 07/13/2025 14:14:32 07/07/20 25 07/13/2025 THINP REP TIS PAP comment: normal This Pap test has been evalu ated with the ThinP rep(R ) Imagi ng Syste m. Not Available [address] [address] [place], [address], 07/13/2025 14:14:32 07/07/2007/13/2025 THINP REP TIS PAP cytotechnolo gist: normal MEF, CT( CP) CT Scree maurisio Locat ion: [facility] Admin istra [place] [address] CLIA: [id number] Slide prepa ratio n perfo rmed at: [facility], [address] [facility] [place], [address] CLIA: [id number] Not Available [facility] [address] [place], [address], 07/13/2025 14:14:32 07/07/2007/13/2025 THINP REP TIS PAP comment EXPLA NATOR Y NOTE: The Pap is a scree maurisio test for cervi regan cance r. It is not a diagn ostic test and is subje ct to false negat jason and false posit jason resul ts. It is most relia ble when a satis facto ry sampl e, regul rosanne obtai shawn, is submi tted with relev ant clini regan findi ngs and histo ry, and when the Pap resul t is evalu ated along with histo janice and curre nt clini regan infor matio n. Not Available [facility] [address] [place], [address], 07/13/2025 14:14:32 08/30/20 25 08/30/2025 pregn fariha test, urine HCG positi ve Not Available [facility] [address] [place], [address], 08/30/2025 10:23:43 09/29/20 25 09/30/2025 DRUG ABUSE PANEL 7 W/CON FIRM amphetamines Negati ve negati ve normal Not Available [facility] [address] [place], [address], 09/30/2025 12:34:29 09/29/20 25 09/30/2025 DRUG ABUSE PANEL 7 W/CON FIRM barbiturates Negati ve negati ve normal Not Available [facility] [address] [place], [address], 09/30/2025 12:34:29 09/29/20 25 09/30/2025 DRUG ABUSE PANEL 7 W/CON FIRM benzodiazepi eduardo Negati ve negati ve normal Not Available [facility] [address] [place], [address], 09/30/2025 12:34:29 09/29/20 25 09/30/2025 DRUG ABUSE PANEL 7 W/CON FIRM cocaine metabolites Negati ve negati ve normal Not Available [facility] [address] [place], [address], 09/30/2025 12:34:29 09/29/20 25 09/30/2025 DRUG ABUSE PANEL 7 W/CON FIRM cannabinoids Negati ve negati ve normal Not Available [facility] [address] [place], [address], 09/30/2025 12:34:29 09/29/20 25 09/30/2025 DRUG ABUSE PANEL 7 W/CON FIRM methadone Negati ve negati ve normal Not Available [facility] [address] [place], [address], 09/30/2025 12:34:29 09/29/20 25 09/30/2025 DRUG ABUSE PANEL 7 W/CON FIRM opiates Negati ve negati ve normal Not Available [facility] [address] [place], [address], 09/30/2025 12:34:29 09/29/20 25 09/30/2025 DRUG ABUSE PANEL 7 W/CON FIRM creatinine, urine 136 mg/dL 20 - 275 normal Not Available [facility] [address] [place], [address], 09/30/2025 12:34:29 09/29/20 25 09/30/2025 CT/NG chlamydia trachomatis CT neg negati ve normal This repor t is inten ded for use in clini regan monit oring and manag ement of patie nts. It is not inten ded for use in medic al-le gal appli catio n. Not Available [facility] [address] [place], [address], 09/30/2025 15:29:26 09/29/20 25 09/30/2025 CT/NG neisseria gonorrhoeae GC neg negati ve normal This repor t is inten ded for use in clini regan monit oring and manag ement of patie nts. It is not inten ded for use in medic al-le gal appli catio n. Not Available [facility] [address] [place], [address], 09/30/2025 15:29:26 09/29/20 25 10/02/2025 VARIC KAI ZOSTE R VIRUS ANTIB CASSIDY (IGG) varicella zoster virus antibody (IgG) <1.00 S/co low Signa l to Cut-o ff S/CO Inter preta tion ----- ---- ----- ----- ----- ----- -- <1.00 Negat jason - Antib cassidy not detec romeo > or = 1.00 Posit jason - Antib cassidy detec romeo A posit jason resul t indic ates that the patie nt has antib cassidy to VZV but does not diffe renti ate betwe en an activ e or past infec tion. The clini regan diagn osis must be inter prete d in conju nctio n with the clini regan signs and sympt oms of the patie nt. This assay relia fanta measu res immun ity due to previ ous infec tion but may not be sensi tive enoug h to detec t antib odies induc ed by vacci natio n. Thus, a negat jason resul t in a vacci nated indiv idual does not neces saril y indic ate susce ptibi lity to VZV infec tion. A more sensi tive test for vacci natio n-ind uced immun ity is Varic kai Zoste r Virus Antib cassidy Immun ity Scree n, ACIF. Not Available [facility] [address] [place], [address], 10/02/2025 16:49:41 09/29/20 25 10/02/2025 HEMOG LOBIN OPATH Y EVALU ATION red blood cell count 4.64 colin on/uL 3.80-5 .10 Not Available [facility] [address] [place], [address], 10/02/2025 16:49:42 09/29/2010/02/2025 HEMOG LOBIN OPATH Y EVALU ATION hemoglobin 13.3 g/dL 11.7-1 5.5 Not Available [address] [address] [place], [address], 10/02/2025 16:49:42 09/29/2010/02/2025 HEMOG LOBIN OPATH Y EVALU ATION hematocrit 41.2 % 35.0-4 5.0 Not Available [address] [address] [place], [address], 10/02/2025 16:49:42 09/29/2010/02/2025 HEMOG LOBIN OPATH Y EVALU ATION MCV 88.8 fL 80.0-1 00.0 Not Available [address] [address] [place], [address], 10/02/2025 16:49:42 09/29/2010/02/2025 HEMOG LOBIN OPATH Y EVALU ATION MCH 28.7 pg 27.0-3 3.0 Not Available [address] [place], [address], 10/02/2025 16:49:42 09/29/2010/02/2025 HEMOG LOBIN OPATH Y EVALU ATION RDW 12.7 % 11.0-1 5.0 Not Available [address] [address] [place], [address], 10/02/2025 16:49:42 09/29/2010/02/2025 HEMOG LOBIN OPATH Y EVALU ATION hemoglobin A 97.4 % >96.0 Not Available [address] [address] [place], [address], 10/02/2025 16:49:42 09/29/2010/02/2025 HEMOG LOBIN OPATH Y EVALU ATION hemoglobin F <1.0 % <2.0 Not Available [address] [address] [place], [address], 10/02/2025 16:49:42 09/29/2010/02/2025 HEMOG LOBIN OPATH Y EVALU ATION hemoglobin A2 (quant) 2.6 % 2.0-3. 2 Not Available [address] [address] [place], [address], 10/02/2025 16:49:42 09/29/2010/02/2025 HEMOG LOBIN OPATH Y EVALU ATION interpretati on Torrie l pheno type. Torrie l hemog lobin distr ibuti on, no HgS, HgC or other abnor mal hemog lobin obser sadi. Not Available [address] [address] [place], [address], 10/02/2025 16:49:42 09/29/2010/02/2025 MEASL ES AB (IGG) , IMMUN E STATU S measles Ab (IgG), immune status 114.00 AU/mL normal AU/mL Inter preta tion ----- ----- ----- ---- <13.5 0 Not consi stent with immun ity 13.50 -16.4 9 Equiv ocal >16.4 9 Consi stent with immun ity The prese nce of measl es IgG sugge sts immun izati on or past or curre nt infec tion with measl es virus . For addit ional infor anabella chairez e refer to http: //valerie Wagner stDia gnost ics.c om/fa q/FAQ 162 (This link is being provi ded for infor jessica stovall/ educa rickie l purpo ses only. ) Not Available [address] [address] [place], [address], 10/02/2025 16:49:42 09/29/2010/02/2025 ANTIB CASSIDY SCREE N, RBC W/REF L ID, TITER AND AG antibody screen, RBC w/refl id, titer and Ag NO ANTIBO DIES DETECT ED normal Refer ence range No antib odies detec romeo This assay is a scree maurisio test for the detec tion of red blood cell antib odies . The test is not to be used for pretr ansfu jeremy scree maurisio or for the medic al manag ement of an alloi mmuni zed pregn fariha. Not Available [address] [address] [place], [address], 10/02/2025 16:49:43 09/29/2010/02/2025 ABO GROUP AND RH TYPE ABO group O Not Available [address] [address] [place], [address], 10/02/2025 16:49:43 09/29/2010/02/2025 ABO GROUP AND RH TYPE Rh type RH(D) POSITI VE For addit ional infor anabella chairez e refer to http: //[facility] lien kong.Que stDia gnost ics.c om/fa q/FAQ 111 (This link is being provi ded for infor jessica stovall/ mary monahan purpo ses only. ) Not Available [facility] [address] [address] [place], [address], 10/02/2025 16:49:43 09/29/2010/02/2025 CULTU RE, URINE , ROUTI NE culture, urine, routine SEE NOTE CULTU RE, URINE , ROUTI NE Micro Numbe r: [id number] Test Statu s: Final Speci men Sourc e: Urine Speci men Quali ty: Adequ ate Resul t: Mixed genit al deidra isola romeo. These super ficia l bacte maya are not indic ative of a urina ry tract infec tion. No furth er organ ism ident ifica tion is warra nted on this speci men. If clini jose g indic ated, recol lect clean -catc h, mid-s tream urine and trans percy immed iatel y to Urine Cultu re Trans port Tube. Not Available [facility] [address] [address] , [place], [address], 10/02/2025 16:49:44 09/29/20 25 09/29/2025 OB PANEL - STD BLOOD WORK OB panel - STD bloodwork d order = No specim en receiv ed to [facility] as of 2024 Not Available [facility] [address] [place], [address], 10/04/2025 14:07:09 09/29/20 25 09/29/2025 CBC (INCL UDES DIFF/ PLT) CBC (includes diff/plt) d order = No specim en receiv ed to [facility] as of 2024 Not Available [facility] [address] [place], [address], 10/04/2025 14:07:11 09/29/20 25 09/29/2025 HEMOG LOBIN A1C hemoglobin A1C d order = No specim en receiv ed to [facility] as of 2024 Not Available [facility] [address] [place], [address], 10/04/2025 14:07:12 09/29/20 25 09/29/2025 TSH TSH d order = No specim en receiv ed to [facility] as of 2024 Not Available [facility] [address] [place], [address], 10/04/2025 14:07:13 09/29/20 25 10/06/2025 OB PANEL - STD BLOOD WORK hep BS Ag Non-Re active non-re active normal Not Available [facility] [address] [place], [address], 10/06/2025 13:28:31 09/29/20 25 10/06/2025 OB PANEL - STD BLOOD WORK hep C Ab Non-Re active non-re active normal Not Available [facility] [address] [place], [address], 10/06/2025 13:28:31 09/29/2010/06/2025 OB PANEL - STD BLOOD WORK HIV 1/2 Ag/Ab Non-Re active non-re active normal Not Available [address], [address], 10/06/2025 13:28:31 09/29/20 25 10/06/2025 OB PANEL - STD BLOOD WORK syphilis Ab Non-Re active non-re active normal Not Available [facility] [address] [place] [address], [address], 10/06/2025 13:28:31 09/29/2010/06/2025 OB PANEL - STD BLOOD WORK rubella Ab IgG, immune status Immune immune normal INTER PRETI VE INFOR MATIO N: Rubel la Antib cassidy, IgG, Immun e Statu s. Not Immun e ..... .Not Detec romeo Equiv ocal ..... ....I ndete rmina te - Repea t testi ng in 10-14 days may be helpf ul. Immun e.... ..... ...De tecte d The prese nce of Rubel la IgG antib cassidy sugge st respo nse to immun izati on or prior /curr ent expos ure to the Rubel la virus . The best evide nce for curre nt infec tion is a signi chico shea on two appro priat harley timed speci mens, where both tests are done in the same labor atory at the same time. Not Available [facility] [address] [place] [address], [place], [address], 10/06/2025 13:28:31 09/30/2009/30/2025 CHROM OSOME S 13, 18, 21 + SEX CHROM OSOME CHARLIE SIS chromosomes 13, 18, 21 + sex chromosome analysis Negati ve normal See PDF for compl ete resul ts. Overa ll Resul t: Negat jason Negat jason for all order ed condi tions Clini regan Notes : * The resid ual risks provi ded repre sent [facility] that the pregn fariha is affec romeo with the indic ated chrom osome aneup loidy in view of a negat jason resul t. * This is a scree maurisio test; there fore, false posit jason and false negat jason resul ts can occur . No irrev ersib le decis ion shoul d be made based on these findi ngs alone . Clini regan corre latio n with ultra sound findi ngs and histo ry is indic ated. If defin itive diagn osis is rohit ed, chori onic villu s sampl ing or amnio cente sis is neces garcia. fract ion: 18.3% - fract ion is one compo nent of the algor ithm used and is combi shawn with other quali ty metri cs to deter mine the aneup loidy scree maurisio resul t. Not Available [facility] [address], [place], [address], 10/05/2025 11:50:55 10/01/2010/01/2025 CARL MENTA L (CF + SMA) [871] fundamental (CF + sma) [871] Negati ve normal See PDF for compl ete resul ts. Overa ll Resul t: Negat jason No disea se-ca using mutat ions detec romeo. Not Available [facility] [address], [place], [address], 10/08/2025 16:12:21 08/31/2008/30/2025 US, obste tric No observ ation record ed. [email or web address] [facility] [address], [place], [address], 08/31/2025 14:56:08 09/03/2009/01/2025 US, trans vagin al No observ ation record ed. [email or web address] [facility] [address], [place], [address], 09/06/2025 03:03:46 Result Notes None recorded. Problems Name Problem SNOMED Code Status Onset Date Resolution Date Notes Provider Name and Address Organization Details Recorded Time Normal pregnanc y in primigra bernadette [id number] Completed O+/RI, qnatal low risk, MSAFP negative . Anatomy complete GTT 76 Sherry Bowman null, [employer] IV 2 11:17:34 Uterine size for dates discrepa ncy [id number] Completed 08/28 growth at 24.5% Sherry Bowman null, [facility] 2 11:17:34 Finding of pattern of menstrua l cycle Completed 201706/04/2019 Other specifie d irregula r menstrua tion; Progress : Stable Added By: Asher Wild Add to Current Problems : NO ProblemS tatus: Resolve Not Available [facility] 21:44:51 Acute vaginiti s [id number] Completed 201711/01/2018 Acute vaginiti s; Progress : Stable Added By: Asher Wild Add to Current Problems : NO ProblemS tatus: Resolve Not Available [facility] 2 21:44:51 Finding of regulari ty of menstrua l cycle Completed 201706/04/2019 Irregula r menstrua tion, unspecif ied; Progress : Stable Added By: Asher Wild Add to Current Problems : NO ProblemS tatus: Resolve Not Available [facility] 2 21:44:50 Female genital organ symptoms [id number] Completed 201706/04/2019 Pelvic pain; Progress : Stable Added By: Asher Wild Add to Current Problems : NO ProblemS tatus: Resolve Not Available [facility] 2 21:44:50 Irregula r periods [id number] Completed 201706/04/2019 Other specifie d irregula r menstrua tion; Progress : Stable Added By: Asher Wild Add to Current Problems : NO ProblemS tatus: Resolve Not Available [facility] 2 21:44:51 Vaginiti s and vulvovag initis Completed 201711/01/2018 Bacteria l vaginosi s; Progress : Stable Added By: Asher Wild Add to Current Problems : NO ProblemS tatus: Resolve Not Available [facility] 2 21:44:51 Follicul ar cyst of ovary [id number] Completed 201706/30/2019 Ovarian cyst; Progress : Stable Added By: Asher Wild Add to Current Problems : NO ProblemS tatus: Resolve Ovarian cyst; Location : None Progress : Stable Added By: Asher Wild Add to Current Problems : YES ProblemS tatus: Current Not Available [employer] 2 21:44:50 Surveill ance of oral contrace ption done [id number] 9108 Completed 201706/30/2019 Contrace ptive surveill ance, unspecif ied; Location : None Severity : Moderate Progress : Stable Added By: Asher Wild Add to Current Problems : YES ProblemS tatus: Resolve Contrace ptive surveill ance, unspecif ied; Severity : Moderate Progress : Stable Added By: Asher Wild Add to Current Problems : NO ProblemS tatus: Resolve Not Available [facility] 1 20:41:32 Surveill ance of contrace ption Completed 201707/16/2019 Contrace ptive surveill ance, unspecif ied; Location : None Progress : Stable Added By: Asher Wild Add to Current Problems : YES ProblemS tatus: Resolve Encounte r for surveill ance of contrace ptives, unspecif ied; Progress : Stable Added By: Asher Wild Add to Current Problems : NO ProblemS tatus: Resolve Not Available [facility] 2 21:44:51 Body mass index 40+ - severely obese 685734021 Active 2021 Not Available [employer] 2 03:40:05 First trimeste r pregnanc y 63711529 Active 2024 Miguel Bauer null, [employer] [facility] 5 10:27:27 Pregnanc y 38422422 Active 2024 Carmel thompson null, [employer] [facility] 5 16:32:15 Problem Notes None recorded. Procedures Surgical History Date Name Laterality Status Provider Name and Address Organization Details Recorded Time 5 Date of Last Pap Smear completed Anika Niño [facility] [employer] 07/14/2025 10:54:36 extraction of wisdom tooth completed Jayda Segal [facility] [employer] [facility] 03/06/2022 10:29:56 Imaging Results None recorded. Procedure Notes None recorded. Medical Equipment None Reported. Allergies Allergen ID Allergen Name Allergen Category Reaction Reaction Severity Criticality Documentation Date Start Date Code Code System Note Provider Name and Address Organization Details Recorded Time 964466 Substance with sulfonami de structure and antibacte rial mechanism of action (substanc e) medicatio n Not available Not available Not available 09/22/20212017 30802 8003 SNOMED Sever ity: Moder ate; Not Available [facility] 01:19:16 308988 Product containin g penicilli n (product) medicatio n Not available Not available Not available 09/22/20212017 74369 8001 SNOMED Sever ity: Moder ate; Not Available [facility] 01:19:16 854049 Flagyl medicatio n Not available Not available Not available 03/23/2022 6 RxNorm Tracy Turner [facility], [facility] [employer] 2 11:32:28 262633 cow milk allergeni c extract food,medi cation Not available Not available Not available 12/09/2023 41682 5 RxNorm Paula Jorge [facility], [facility] [employer] 4 12:33:57 462755 wheat preparati on food,medi cation other Not available low 12/09/20232023 55620 52 RxNorm Suzanne Salazar null, [facility] [employer] 5 14:01:36 998459 progester one medicatio n hives mild Not available 12/09/2023 8727 RxNorm Ashlyn Uzma [facility], [facility] [employer] 4 12:56:20 642383 metronida zole medicatio n other Not available low 08/30/20252020 6922 RxNorm Topic al yeast infec tion. Not Available cait - External Data Service - prod 5 04:59:35 105770 iodine medicatio n itching Not available Not available 08/30/20252023 5933 RxNorm Pt repor ts havin g a react ion after contr ast dye Not Available cait - External Data Service - prod 5 04:59:35 872667 wheat dextrin food,medi cation other Not available low 08/30/20252023 48479 6 RxNorm unrec ogniz ed react ion (text : Unkno wn, code: [id number]) (from exter nal sourc e) Not Available cait - External Data Service - prod 5 04:59:35 651565 Iodinated contrast media (substanc e) medicatio n itching Not available high 08/30/20252023 74323 2004 SNOMED unrec ogniz ed react ion (text : Chest tight ness, code: 27191 001) (from exter nal sourc e) Not Available cait - External Data Service - prod 5 05:01:08 Medications Name Sig Start Date Stop Date Status Note LastModified by Organization Details LastModified Time terconazol e 0.4 % vaginal cream Insert 1 applicat orful every day by vaginal route for 7 days. 09/17 completed Not Available Not Available Not Available Flagyl 500 mg tablet 1 PO BID x 7 days 11/01 completed Flagyl 500mg Tablet RxNorm: 261008 Allow Substit ution: True Refill Denied: No Not Available Not Available Not Available cephalexin 500 mg capsule TAKE 1 CAPSULE BY MOUTH EVERY 8 HOURS FOR 7 DAYS 10/09 completed Not Available Not Available Not Available norethindr one (contracep tive) 0.35 mg tablet TAKE 1 TABLET BY MOUTH EVERY DAY 02/13 completed Not Available Not Available Not Available fluticason e propionate 50 mcg/actuat ion nasal spray,susp ension Penrose 1 {spray} by nasal route. 09/01 completed Not Available Not Available Not Available doxycyclin e hyclate 100 mg tablet TAKE 1 TABLET BY MOUTH TWICE DAILY FOR 10 DAYS 03/06 completed Not Available Not Available Not Available NuvaRing 0.12 mg-0.015 mg/24 hr vaginal insert 1 ring vaginall y leave for 21 days, remove for one week 08/30 completed Not Available Not Available Not Available escitalopr am 10 mg tablet TAKE 1/2 TABLET DAILY FOR 7 DAYS THEN TAKE 1 TABLET DAILY 08/30 completed Not Available Not Available Not Available cetirizine 10 mg chewable tablet Chew 10 mg by oral route. 02/13 completed Not Available Not Available Not Available nitrofuran toin monohydrat e/macrocry stals 100 mg capsule Take 1 capsule every 12 hours by oral route for 7 days. 09/01 completed Not Available Not Available Not Available active Not Available Not Avai lable Not Available Zyrtec active Not Available Not Availa ble Not Available Vitals Date Recorded Body height Body mass index (BMI) Body weight Body temperature Provider Name and Address Organization Details Last Updated DateTime 12/09/2023 157.48 cm 43.5 kg/m2 153598.98 g 97.9 [degF] Ashlyn Gusman [facility] [employer] 12/09/2023 12:54:32 Date Recorded Body weight Body mass index (BMI) Body height Systolic And Diastolic Provider Name and Address Organization Details Last Updated DateTime 07/07/2025 833264.78 g 45.5 kg/m2 157.48 cm 110/80 mm[Hg] Carmel Jara [facility] [employer] 07/07/2025 13:01:43 Date Recorded Body height Body mass index (BMI) Body weight Systolic And Diastolic Provider Name and Address Organization Details Last Updated DateTime 08/30/2025 157.48 cm 46.2 kg/m2 132421.71 g 110/75 mm[Hg] Miguel Bauer [facility] [employer] 08/30/2025 10:33:11 Date Recorded Body height Body mass index (BMI) Body weight Systolic And Diastolic Provider Name and Address Organization Details Last Updated DateTime 09/01/2025 157.48 cm 45.7 kg/m2 625458.66 g 120/60 mm[Hg] Jeremi Alexander [facility] 09/01/2025 14:15:48 Date Recorded Body height Body weight Body mass index (BMI) Systolic And Diastolic Provider Name and Address Organization Details Last Updated DateTime 09/29/2025 157.48 cm 480877.50 013 g 45.5 kg/m2 112/76 mm[Hg] Suzanne Salazar [facility] [employer] [facility] 09/29/2025 14:00:57 Social History Question Answer Notes LastModified by [email or web address] Details LastModified Time Tobacco Smoking Status Never Smoker Jayda Segal frances, [facility] [employer] [facility] 03/06/2022 10:29:42 If You Are , What Was Your Level Of Alcohol Consumption Prior To ? Occasional [email or web address] Information not available 09/29/2025 How Many Years Have You Consumed Alcohol? 7 Information not available 07/07/2025 Are You Blind Or Do You Have Difficulty Seeing? No Information not available 03/06/2022 Are You Deaf Or Do You Have Serious Difficulty Hearing? No Information not available 03/06/2022 What Type Of Diet Are You Following? GLUTENFREE Information not available 03/06/2022 What Is The Highest Grade Or Level Of School You Have Completed Or The Highest Degree You Have Received? [id number] Information not available 07/07/2025 How Many Children Do You Have? 1 [email or web address] Information not available 11/28/2022 Are There Any Occupational Health Risks Where You Work? Yes Information not available 12/09/2023 What Is Your Relationship Status? Single Information not available 12/09/2023 Are You Sexually Active? Yes [email or web address] Information not available 03/06/2022 Sex: Female Functional Status Question Answer Note LastModified by [email or web address] Details LastModified Time Do you use any illicit or recreational drugs? No Information not available 03/06/2022 Do you or have you ever used any other forms of tobacco or nicotine? No Information not available 03/06/2022 What is your level of alcohol consumption? None [email or web address] Information not available 09/29/2025 Are you currently employed? Yes Information not available 12/09/2023 What is your exercise level? Occasional Information not available 12/09/2023 Mental Status None recorded. Family History Relationship Description Onset Age of this Age Resolved Age Notes LastModified by Organization Details LastModified Time Mother Deep venous thrombosis [email or web address] Not available 09/29 13:53:42 Mother Hypothyroidi sm [email or web address] Not available 2021 10:12:53 Mother Malignant neoplasm of breast [email or web address] Not available 2023 12:33:57 Paternal Grandfather Hypertensive disorder [email or web address] Not available 04/2022 00:00:38 Paternal Grandfather Type 2 diabetes mellitus [email or web address] Not available 2024 13:53:42 Paternal Grandfather Malignant neoplastic disease [email or web address] Not available 2023 12:33:57 Maternal Grandfather Hypertensive disorder [email or web address] Not available 04/2022 00:00:38 Maternal Grandfather Heart disease [email or web address] Not available 2023 12:33:57 Paternal Uncle Type 2 diabetes mellitus [email or web address] Not available 2024 13:53:42 Maternal Grandmother Hypertensive disorder [email or web address] Not available 2023 12:33:57 Father Heart disease [email or web address] Not available 2023 12:33:57 Medical History Condition Response Other Cancer N High Blood Pressure N Colon Cancer N Cytomegalovirus N Hyperthyroidism N Blood Transfusion N MRSA N Herpes (HSV) N Breast Cancer N Lung Cancer N Depression Y Hypothyroidism N Incontinence N Panic Attacks N Neurological Disorder N Deep Vein Thrombosis N Anxiety Disorder Y Autoimmune disease N Arthritis N Tuberculosis/Positive PPD N Shingles N Polycystic Ovarian Syndrome N Cervical Cancer N Hematuria N Chlamydia N Stroke N Varicosities N Seasonal allergies N Crohn's Disease N Alzheimer's/Dementia N COPD/Emphysema N HPV/Genital Warts N Endometriosis N IBS (Irritable Bowel Syndrome) N History of Abnormal Pap N High Cholesterol N Liver Disease N Kidney Infection N Fibromyalgia N Ulcer N Kidney Disease N HIV N Gallbladder disease N Sickle Cell Disease/Trait N Von Willebrand disease N ADD/ADHD N Eating Disorder N Anemia N Diabetes Mellitus (non-insulin dependent ) N Multiple Sclerosis N Ovarian Problems N Gonorrhea N Frequent Urinary Tract infections N Osteopenia N Headaches/migraines N GERD (reflux) N Ovarian Cancer N Diabetes (insulin dependent) N Seizures/Epilepsy N Fibroids N Asthma N Heart Attack N Lupus N Endometrial Cancer N Rubella N Blood Clotting Disorder N Bipolar Disorder N Diabetes Mellitus (during ) N Ulcerative Colitis N Hepatitis N Heart Disease N Pulmonary Embolism N RPR N Chicken Pox N Osteoporosis N Gynecological History Statement/Question Response Date of last HPV Date of LMP 07/03/2025 HPV Vaccine N Duration of Flow (days) 4 Most Recent Mammogram Current Control Method Age at Menarche 14 Date of Last Colonoscopy Most Recent Bone Density Frequency of Cycle (Q days) 28 Date of Last Pap Smear 07/07/2025 Obstetrics History GPAL:G 2 P 1 0 1 1 Type Value Full Term 1 Spontaneous 1 Living 1 Total 2 Past Encounters Encounter ID Performer Location Encounter Start Date Encounter Closed Date Diagnosis/Indication Diagnosis SNOMED-CT Code Diagnosis ICD10 Code Diagnosis IMO Codes Diagnosis Note [id number] Carmel Mccauley CNM [facility] [address] [place] [address] 03/06/2022 09:51:06 03/06/2022 13:05:51 test positive 555251739 Z32.01 Venereal d isease screening 864507471 Z11.3 N89.9 [id number] PIERCE Chavez [facility] [address] [place] [address] 03/23/2022 11:27:08 03/23/2022 11:46:20 test positive 191596391 Z32.01 Threatened miscarriage 96384914 O20.0 +FHT's on bedside u/s. Keep upcoming NOB visit in [place] [id number] Carmel Mccauley CNM [facility] [address] [place] [address] 04/09/2022 10:44:30 04/09/2022 11:31:13 Routine care 958625822 Z34.01 Z34.81 O09.511 O09.079 [id number] Carmel Mccauley [facility] [address] [place] [address] 05/01/2022 10:01:47 05/01/2022 12:47:00 18888298 Z33.1 screening 2437 27601 Z36.9 [id number] [facility] [address] [place] [address] 05/29/2022 09:45:54 05/29/2022 12:39:19 screening for malformation 599070435 Z36.3 [id number] Eliana Mchughmouna [facility] [address] [place] [address] 06/26/2022 11:05:44 06/26/2022 21:00:09 Normal in primigravida 1513320219 50934 Z34.02 Gestation period, 24 weeks 926160084 Z3A.24 labor precaution s given. FM counts discussed. F/u in L&D if experienci ng decreased movement, leaking fluid, 4 or more contractio ns in 1 hour not relieved by rest and fluids, or regular uterine contractio ns increasing in frequency and/or intensity. screening for malformation 781625398 Z36.3 [id number] [facility] [address] [place] [address] 07/24/2022 09:51:22 07/30/2022 13:38:23 Routine care 779516619 Z34.03 Z34.83 O09.513 O09.523 Gestation period, 28 weeks 78546758 Z3A.28 Uterine si ze for dates discrepancy 755484628 O26.849 growth too [id number] [facility] [address] [place] [address] 08/13/2022 10:01:17 08/13/2022 11:31:37 Gestation period, 30 weeks 25323478 Z3A.30 Routine an tenatal care 336193942 Z34.03 Z34.83 O09.513 O09.333 [id number] [facility] [address] [place] [address] 08/28/2022 11:19:10 08/28/2022 13:05:54 Uterine size for dates discrepancy 847851587 O26.849 ming mando [id number] [facility] [address] [place] [address] 09/11/2022 09:59:51 09/12/2022 10:14:20 [id number] Carmel [facility]ccaule[facility] [address] [place] [address] 09/18/2022 10:40:44 09/19/2022 11:18:54 Routine care 215545204 Z34.03 Z34.83 O09.513 O09.918 [id number] [facility] [address] [place] [address] 09/24/2022 17:00:23 10/02/2022 07:06:36 Uterine size for dates discrepancy 197839147 O26.849 ming mando [id number] [facility] [address] [place] [address] 09/25/2022 10:43:18 09/25/2022 11:40:23 [id number] [facility] [address] [place] [address] 10/02/2022 10:46:51 10/02/2022 13:49:43 Normal in primigravida 8732309243 88904 Z34.02 Gestation period, 38 weeks 71426628 Z3A.38 Labor precaution s given. FM counts discussed. F/u in L&D if experienci ng decreased movement, SROM, or regular uterine contractio ns increasing in frequency and/or intensity. [id number] [facility] [address] [place] [address] 10/09/2022 10:42:12 10/09/2022 11:30:12 [id number] [facility] [address] [place] [address] 10/16/2022 12:02:52 10/16/2022 13:06:42 [id number] [facility] [address] [place] [address] 10/31/2022 12:09:07 10/31/2022 14:59:44 state 11376599 Z39.2 [id number] Carmel [facility] [address] [place] [address] 11/28/2022 11:01:27 11/28/2022 11:52:37 state 86022477 Z39.2 Initial pr escription of oral contraception 419151239 Z30.369 [id number] Asher Wild [facility] [address] [place] [address] 02/13/2023 12:57:26 02/13/2023 16:32:39 Contraception care management 715748685 Z30.9 Do not recommend paragard d/t nickel allergy. Samples of Slynd given to try. Schedule a f/u vist in 3 months [id number] [facility] [address] [place] [address] 12/09/2023 12:07:48 12/16/2023 11:55:02 Gynecologic examination 75243514 Z01.419 Screening for malignant neoplasm of cervix 783553481 Z12.4 Surveillan ce of contraception 642862051 Z30.40 Trial nuva ring- followup in 3 months. Instructed to return if sores develop- strict allergy precaution s reviewed. Depression screening 171 391943 Z13.31 See Intake Screening - PHQ Urinary incontinence 165 978909 R32 Plan UDT and referral to women's pt. [id number] MACIEJ SCHUSTER, [facility] [address] [place] [address] 07/07/2025 12:51:33 07/07/2025 13:49:27 Gynecologic examination 16668769 Z01.419 Patient is an establishe d patient who presents for a gynecologi regan Annual Exam. The patient denies any changes in her medical history. The patient denies any changes in her family medical history. Annual Exam:She reports having no significan t [employer] symptoms. Notes incontinen ce since her baby and desires pelvic floor therapy, consult sent.Her menses are regular, occurring every 1 month(s). Menses lasts for 4 days. Reports they are not heavy or painful. Denies spotting in between.Pt is currently not using contracept ion, pt concerned she's allergic to progestin r/t body sores she gets while on BC. Advised switching from daily vitamins to daily PNV and she is satisfied with her situation. Pap History:Michelle yeung is due for a pap smear. Breast History:Michelle yeung denies breast symptoms. Education on Breast Self Awareness given. Mother has hx of breast cancer at 46yo, advised pt she will need mammograms at 36yo instead of 41yo. Family History:Po sitive for Breast Cancer (mother), Negative for Cervical Cancer, Colon Cancer, Endometria l Cancer and Ovarian Cancer. Screening for malignant neoplasm of cervix 932594569 Z12.4 Surveillan ce of contraception 602491903 Z30.40 Depression screening 171 142326 Z13.31 See Intake Screening - PHQ Female uri nary stress incontinence 89190616 N39.3 32946536 [id number] MACIEJ SCHUSTER CNM [facility] [address] [place] [address] 08/30/2025 09:53:54 08/30/2025 12:07:44 Urinary symptoms 254649588 R39.9 [id number] Amenorrhea 12393748 N91. 2 [id number] Pt presents today for a confirmati on of visit. has not been previously confirmed at another healthcare facility. Pt voiced that she is happy about this . TVUS today showed:IUP with Cardiac Activity. GUSTAVO consistent with LMP. GUSTAVO: 04/09/26Gest ational Age: 8w 2dFHT: 144 First trimester teaching provided.- --Foods and activities to avoid---We ight gain recommenda tions based on BMI---Safe meds---Waylon entation to practice-- -Delivery locations- --DELTA visit progressio n---Prenat al vitamins daily---To xoplasmosi s precaution s reviewed-- -[facility] Guide; What to expect on your maternity journey-- -S/S of SAB reviewed and when to seek care RTC for 1st OB, Labs, and Physical. --BMI: 45.5 -- Pt desires Genetic testing, PA sent Patient was counseled on purpose, process and potential outcomes of NIPT and carrier screening. We discussed benefits, limitation s and accuracy of screenings . Alternativ es including, no testing, were reviewed. Patient was given the opportunit y to ask questions, which were addressed thoroughly . After confirming understand ing, patient provided verbal consent for NIPT and carrier screening. [id number] Eliana Aceves CNM [facility] [address] [place] [address] 09/01/2025 14:00:19 09/01/2025 14:32:10 Bleeding from female genital tract during 5066780009 7409172 O46.90 [id number] Pt had one episode of bright red vaginal bleeding this morning - describes it as more than spotting.N o evidence of active bleeding seen on exam. Cervix visually closed.Swa b collectedU S shows no evidence of active miscarriag e.Findings discussed w/ptBleedi ng precaution s discussed in detail. [id number] MACIEJ SCHUSTER CNM [facility] [address] [place] [address] 09/29/2025 13:49:59 09/29/2025 14:51:21 Gestation period, 11 weeks 83592447 Z3A.11 [id number] Pt comes in today for a New/First OB visit.Gest ation: 11w 6dEDD: 04/09/2026 -- PMH: HTN, Anxiety, Depression ? No PMH-- Medication s: Taking daily PNV, not taking any other medication s-- Previous OB History: GDM, GHTN, delivery? Vaginal delivery?- - Mom/Sister s with hx of Pre-Eclamp pablo:-- History of Genital HSV:-- Genetic Questions in OB Episode Done --BMI at Confirmati on: 45-- [facility] BMI-BMI >50 can not deliver there-Anes thesia Consult: BMI >45 if they have comorbidit ies-- [facility] BMI-Anesth esia Consult: BMI >50 -- Pre-Pregna ncy BMI >40Serial Growths at 28w, 32w, 36wWeekly NST/MANDO starting at 34w -- First Trimester Diabetes Screening: Recommende d. Screened with: hemoglobin A1CBMI >25 with one or more Risk Factors:-P hysical inactivity -PCOS-Firs t-degree Relative with DM-Suspect ed insulin resistance -GDM in prior OR previously given to >9lb baby-High risk ethnicity (, , , South or East (BMI >23), )- Elevated cholestero l levels (HDL <35, Triglyceri de >250)-Elev ated HbA1c (>5.7%)-Ca rdiovascul ar disease-Hy pertension -- ACOG recommends TSH to be done at 1st OB if indicated: Symptoms, history of thyroid disease or thyroid peroxidase antibodies , family history, goiter, autoimmune disease, Type 1 DM, Infertilit y or recurrent miscarriag e, BMI >40 POC-- NOB labs done today + TSH-- PAP Up to Date-- Pre-Pregna ncy BMI: 45--. Genetic testing collected today. -- Patient was counseled on purpose, process and potential outcomes of NIPT and carrier screening. We discussed benefits, limitation s and accuracy of screenings . Alternativ es including, no testing, were reviewed. Patient was given the opportunit y to ask questions, which were addressed thoroughly . After confirming understand ing, patient provided verbal consent for NIPT and carrier screening. -- Guide: Previously given and reviewed. Toxoplasmo sis precaution s reviewed. Reviewed office visit schedule during . Reviewed Quickening and normal FHTs. screening 2437 56494 Z36.89 Health Concerns Section Related Observation LastModified by Organization Detai ls LastModified Time None Recorded Concern Status LastModified by Organization Details LastModified Time None Recorded Advance Directives Directive None Recorded Payers Insurance Date Sequence Insurance Name Policy Number Policy Griggs Covered Member ID Griggs Member ID Guarantor Name 11/11/2023 2 [facility] (MEDICARE REPLACEMENT/A DVANTAGE - HMO) Martha Forte [id number] Martha Forte 10/06/2025 1 [place] [id number] Pieter Forte [id number] Martha Forte 07/05/2025 2 [employer] [place] - DOS ON OR AFTER 21 (MEDICAID REPLACEMENT - HMO) NONE Martha Forte [id number] Martha Forte 10/16/2022 3 [employer] [place] - DOS ON OR AFTER 2020 (MEDICAID REPLACEMENT - HMO) Pieter Forte [id number] Martha Forte 11/11/2023 3 [place] DEPARTMENT [place] Martha Forte [id number] Martha Forte Notes Date Note Type Note Provider Name and Address Organization Details Recorded Time 4 text/html Annual GYNReported by PatientGenitourinary symptomsFor urinary symptoms, patient reportsincontinence. For menstrual cycle, patient reportsnormal menses. For vulva, patient reportsno genital lesion. For vagina, patient reportsnormal vaginal discharge.Endocrine symptomsFor sexual complaints, patient reportsno sexual complaints,no pain during intercourse, andnormal libido. For menopausal symptoms, patient reportsno menopausal symptomsandnormal vaginal lubrication. Martha presents today wanting to discuss control options Reports developing sores on skin after taking norethindrone and was switched to Slynd and the same thing happened- it was assumed that is was a progesterone allergy at that time however she has used nuva ring without problem. Would like to consider a trial. Carmel Mccauley, [facility] [address], [place], [address], [facility] - [employer] 12/15/2023 13:24:51 5 text/html Annual GYNReported by PatientGenitourinary symptomsFor menstrual cycle, patient reportsnormal menses. For urinary symptoms, patient reportsno hematuriaandno incontinence. For vulva, patient reportsno genital lesion. For vagina, patient reportsnormal vaginal discharge.Breast symptomsFor breast, patient reportsno breast pain,no breast lump, andno nipple discharge.Endocrine symptomsFor sexual complaints, patient reportsno sexual complaints,no pain during intercourse, andnormal libido. For menopausal symptoms, patient reportsno menopausal symptomsandnormal vaginal lubrication.Psychological symptomsFor psychological symptoms, patient reportsno depression,no anxiety, andno pmdd. Martha is a 29 year old female here today for her annual exam.Last pap was 2018LMP was 07/03/25Birth control is: None Pt has no concerns today. MACIEJ SCHUSTER, KATHRINE [address] [place], [address], [employer] [facility] 07/07/2025 13:35:58 5 text/html ROS as noted in the HPI PT is a 29 y/o female here for her confirmation visit. pt LMP 07/03/25. pt US GUSTAVO 04/09/26. pt has concerns of a UTI, pt says symptoms started 4-5 days ago. pt reports urethral sensitivty , no burning when she urinates but burning when just sitting with clothes on or walking. pt also reports a small amount of blood when she wipes but not other. pt has no other cocnerns. MACIEJ SCHUSTER, EVER [address], [place], [address], [employer] [facility] 08/30/2025 11:03:13 5 text/html Abnormal BleedingReported by PatientHPIFor quality, patient reportsheavy. For onset/timing, patient reportsnew onset bleeding. For duration, patient reports<7 days/month. For context, patient reportspositive test.ROS as noted in the HPI Eliana Aceves, KATHRINE [address] [place], [address], [employer] [facility] 09/01/2025 14:31:48 5 text/html ROS as noted in the HPI Patient is here today for a routine OB visit. She is currently at 12.4 weeks gestation. vitamins: yes She has not felt movement.She denies any complaints of the presence of vaginal bleed, leaking fluid, abdominal cramps, nausea, vomiting, headache or visual disturbances. Pt. has concerns about insomnia. 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 Anatomy complete GTT 76 Gustavo Calculation Initial Gustavo Date Initial Exam Date Initial Exam Provider Initial Ultrasound Date Last Menstrual Period Date Ultra Sound Weeks Gestation 10/16/2022 04/09/2022 01/09/2022 0 Eighteen To Twenty Week Gustavo Update Ultra Sound Date Fundal Height At Umbil Quickening Date Ultra Sound Latest Weeks Gestation Final Gustavo Confirmed By Final Gustavo Confirmed Date Final Gustavo Date Ultra Sound Latest Days Gestation 0 10/16/20 22 0 Pre- Flowsheet Flowsheet Date 04/09/2022 Wei Score Blood Edema Fundus Height Fundus Units Glucose Ketones Leukocytes Nitrite Labor Signs Protein Cervic Dilation Cervic Effacement Cervic Station Type Weight in lbs Pre/Post Dialysis Refused Weight 251.78788482405 BP Diastolic BP Location Tested BP Systolic BP Type 78 136 Fetus Heart Rate Present A 156 Fetus Movement A Yes Comments NOB labs today. Considering PETNA next visit. Flowsheet Date 05/01/2022 Wei Score Blood Edema Fundus Height Fundus Units Glucose Ketones Leukocytes Nitrite Labor Signs Protein Cervic Dilation Cervic Effacement Cervic Station Type Weight in lbs Pre/Post Dialysis Refused Weight 247.314802525513 BP Diastolic BP Location Tested BP Systolic BP Type 78 140 Fetus Heart Rate Present A 158 Fetus Movement A Yes Comments MSAFP today. Reviewed hydrat ion and exercise recommendations. Discussed anatomy scan next visit. Flowsheet Date 05/29/2022 Wei Score Blood Edema Fundus Height Fundus Units Glucose Ketones Leukocytes Nitrite Labor Signs Protein Cervic Dilation Cervic Effacement Cervic Station none trace Type Weight in lbs Pre/Post Dialysis Refused Weight 248.783499349936 BP Diastolic BP Location Tested BP Systolic BP Type 70 122 Fetus Heart Rate Present A 152 Fetus Movement A Yes Comments Anatomy incomplete. 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 Discussed plan and will return with rough draft. PTL precautions reviewed. Flowsheet Date 06/26/2022 Wei Score Blood Edema Fundus Height Fundus Units Glucose Ketones Leukocytes Nitrite Labor Signs Protein Cervic Dilation Cervic Effacement Cervic Station trace none none neg Type Weight in lbs Pre/Post Dialysis Refused Weight 256.12110954143 BP Diastolic BP Location Tested BP Systolic BP Type 70 124 Fetus Heart Rate Present A 148 Fetus Movement A Yes Comments anatomy complete; diet revie wed - graving salt. Rec normal seasoned food. Flowsheet Date 07/24/2022 Wei Score Blood Edema Fundus Height Fundus Units Glucose Ketones Leukocytes Nitrite Labor Signs Protein Cervic Dilation Cervic Effacement Cervic Station none 30 Type Weight in lbs Pre/Post Dialysis Refused Weight 260.598124112187 BP Diastolic BP Location Tested BP Systolic BP Type 84 132 Fetus Heart Rate Present A 142 Fetus Movement A Yes Comments Fluid appears low on today's exam. Growth at 34.1%, 1144 grams, 2-8, MANDO 11.37cm. Flowsheet Date 08/13/2022 Wei Score Blood Edema Fundus Height Fundus Units Glucose Ketones Leukocytes Nitrite Labor Signs Protein Cervic Dilation Cervic Effacement Cervic Station none 32 cm none neg Type Weight in lbs Pre/Post Dialysis Refused Weight 260.643085113519 BP Diastolic BP Location Tested BP Systolic BP Type 70 118 Fetus Heart Rate Present A 140 Fetus Movement A Yes Comments Complains of pressure follow ing work shift, Discussed supportive devices and shoes. Precautions reviewed. Plan growth with 4d next visit. Flowsheet Date 08/28/2022 Wei Score Blood Edema Fundus Height Fundus Units Glucose Ketones Leukocytes Nitrite Labor Signs Protein Cervic Dilation Cervic Effacement Cervic Station trace Type Weight in lbs Pre/Post Dialysis Refused Weight 262.042540295466 BP Diastolic BP Location Tested BP Systolic BP Type 72 114 Fetus Heart Rate Present A 132 Fetus Movement A Yes Comments size/date discrep. Growth to day at 24.5%, EFW 1963 grams, 4-5; MANDO 14.27cm. Complains of pubic bone discomfort. Recommend belly bad and changing positions slowly. Flowsheet Date 09/11/2022 Wei Score Blood Edema Fundus Height Fundus Units Glucose Ketones Leukocytes Nitrite Labor Signs Protein Cervic Dilation Cervic Effacement Cervic Station none 38 cm Type Weight in lbs Pre/Post Dialysis Refused Weight 266.513355003787 BP Diastolic BP Location Tested BP Systolic BP Type 80 136 Fetus Heart Rate Present A 136 Fetus Movement A Yes Comments Pelvic pain improved with be lly band. PTL/PIH precautions reviewed. GBS next visit. Flowsheet Date 09/18/2022 Wei Score Blood Edema Fundus Height Fundus Units Glucose Ketones Leukocytes Nitrite Labor Signs Protein Cervic Dilation Cervic Effacement Cervic Station none 40 cm none neg Type Weight in lbs Pre/Post Dialysis Refused Weight 267.962491622638 BP Diastolic BP Location Tested BP Systolic BP Type 70 122 Fetus Heart Rate Present A 145 Fetus Movement A Yes Comments Denies questions or concerns GBS collected today. Plan growth next visit. Strict precautions reviewed. Flowsheet Date 09/24/2022 Wei Score Blood Edema Fundus Height Fundus Units Glucose Ketones Leukocytes Nitrite Labor Signs Protein Cervic Dilation Cervic Effacement Cervic Station Type Weight in lbs Pre/Post Dialysis Refused BP Diastolic BP Location Tested BP Systolic BP Type Fetus Heart Rate Present Fetus Movement Comments Flowsheet Date 09/25/2022 Wei Score Blood Edema Fundus Height Fundus Units Glucose Ketones Leukocytes Nitrite Labor Signs Protein Cervic Dilation Cervic Effacement Cervic Station none 42 cm none neg 1cm 20% -3 Type Weight in lbs Pre/Post Dialysis Refused Weight 265.412885598701 BP Diastolic BP Location Tested BP Systolic BP Type 82 110 Fetus Heart Rate Present A 141 Fetus Movement A Yes Comments GBS Negative. Growth today a t 71.6%, EFW 3223 grams, 7-2; MANDO 19.70cm. Strict precautions reviewed. Flowsheet Date 10/02/2022 Wei Score Blood Edema Fundus Height Fundus Units Glucose Ketones Leukocytes Nitrite Labor Signs Protein Cervic Dilation Cervic Effacement Cervic Station trace none none neg Type Weight in lbs Pre/Post Dialysis Refused With clothes 269.208838207159 BP Diastolic BP Location Tested BP Systolic BP Type 72 R arm 112 sitting Fetus Heart Rate Present A 141 Fetus Movement A Yes Comments No OB concerns. Flowsheet Date 10/09/2022 Wei Score Blood Edema Fundus Height Fundus Units Glucose Ketones Leukocytes Nitrite Labor Signs Protein Cervic Dilation Cervic Effacement Cervic Station none 41 1cm 20% -3 Type Weight in lbs Pre/Post Dialysis Refused Weight 270.534185186022 BP Diastolic BP Location Tested BP Systolic BP Type 72 122 Fetus Heart Rate Present A 145 Fetus Movement A Yes Comments Declines IOL. Strict labor p recautions reviewed. Flowsheet Date 10/16/2022 Wei Score Blood Edema Fundus Height Fundus Units Glucose Ketones Leukocytes Nitrite Labor Signs Protein Cervic Dilation Cervic Effacement Cervic Station 41 cm Type Weight in lbs Pre/Post Dialysis Refused Weight 265.277296190348 BP Diastolic BP Location Tested BP Systolic BP Type 74 120 Fetus Heart Rate Present A 140 Fetus Movement A Yes Comments IOL scheduled for 10/17 at 2 000 at [facility]. Strict precautions reviewed. Flowsheet Date 10/31/2022 Wei Score Blood Edema Fundus Height Fundus Units Glucose Ketones Leukocytes Nitrite Labor Signs Protein Cervic Dilation Cervic Effacement Cervic Station Type Weight in lbs Pre/Post Dialysis Refused Weight 251.607130595062 BP Diastolic BP Location Tested BP Systolic BP Type 82 L arm 120 sitting Fetus Heart Rate Present Fetus Movement Comments Flowsheet Date 11/28/2022 Wei Score Blood Edema Fundus Height Fundus Units Glucose Ketones Leukocytes Nitrite Labor Signs Protein Cervic Dilation Cervic Effacement Cervic Station Type Weight in lbs Pre/Post Dialysis Refused With clothes 249.282289372330 BP Diastolic BP Location Tested BP Systolic BP Type 82 117 sitting Fetus Heart Rate Present Fetus Movement Comments Menstrual History Last Menstrual Date Menses Monthly On Bcp Conception Prior Menses Frequency Hcg Plus Date Menarche Onset Age 0201/09/2022 Delivery Information Delivery Date Delivery Type Labor Anesthesia Weeks Gestation Incision Type Labor Labor Length Hrs Delivered By Post Complications Tubal Sterilization Discharge Date Comments 2 Induce d Regional-Ep idural 40.2 false Carmel Mccauley CNM None false 10/20/2022 Discharge Information Feeding Method Contraceptive Method Maternal HG B and HCT Levels Breast Ob Episode Information Episode Created Date Number of Fetuses Patient Bloodtype Patient rh Status Prepregnancy Weight lbs Domestic Partner Domestic Partner Phone 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 Status 09/28/20 25 1 O Positive OPEN Fetus Data First Name Last Name Admitted to NICU Weight (g) Sex Living Outcome Pediatric Complications Fetus ID Race Codes Race Delivery Type [id number] Gustavo Calculation Initial Gustavo Date Initial Exam Date Initial Exam Provider Initial Ultrasound Date Last Menstrual Period Date Ultra Sound Weeks Gestation 09/28/2025 08/30/2025 07/03/2025 8 Eighteen To Twenty Week Gustavo Update Ultra Sound Date Fundal Height At Umbil Quickening Date Ultra Sound Latest Weeks Gestation Final Gustavo Confirmed By Final Gustavo Confirmed Date Final Gustavo Date Ultra Sound Latest Days Gestation 0 04/09/20 26 0 Pre-silvia Flowsheet Flowsheet Date 09/29/2025 Wei Score Blood Edema Fundus Height Fundus Units Glucose Ketones Leukocytes Nitrite Labor Signs Protein Cervic Dilation Cervic Effacement Cervic Station none neg Type Weight in lbs Pre/Post Dialysis Refused 249.062509015408 BP Diastolic BP Location Tested BP Systolic BP Type 76 112 Fetus Heart Rate Present A 167 Fetus Movement Comments NOB labs today-NIPT todayNo ob concernsRTC in 4 weeks Menstrual History Last Menstrual Date Menses Monthly On Bcp Conception Prior Menses Frequency Hcg Plus Date Menarche Onset Age 0807/03/2025 Delivery Information Delivery Date Delivery Type Labor Anesthesia Weeks Gestation Incision Type Labor Labor Length Hrs Delivered By Post Complications Tubal Sterilization Discharge Date Comments Discharge Information Feeding Method Contraceptive Method Maternal HG B and HCT Levels
--- OUTSIDE RECORDS SUMMARY | 2025-10-09 18:55 | XMS_ITS | Encounter Summary ---
Author Organization [facility] Address [facility] [place] [address] Care Team Providers Care Denture Packer Name Role Phone Stone Bailey MD Primary Care Provider [phone] Jenna Olson MD Primary Care Provider [phone] Encounter Details Date Type Department Care Team (Late st Contact Info) Description 10/23/2022 Hospital Follow-up Call [facility] [place] [address] Key Dominique RN Social History Tobacco Use Types Packs/Day Years Used Date Smoking Tobacco: Never Smokeless Tobacco: Never Alcohol Use Standard Drinks/Week Comments Not Currently 0 (1 standard drink = 0.6 oz pur e alcohol) occasional Humiliation, Afraid, Rape, and Kick questionnair e Answer Date Recorded Within the last year, have y ou been afraid of your partner or ex-partner? No 10/17/2022 Within the last year, have y ou been humiliated or emotionally abused in other ways by your partner or ex-partner? No Within the last year, have y ou been kicked, hit, slapped, or otherwise physically hurt by your partner or ex-partner? No 10/17/2022 Within the last year, have y ou been raped or forced to have any kind of sexual activity by your partner or ex-partner? No 10/17/2022 Depression Answer Date Recor ded Last EPDS Total Score 5 10/20/2022 Last EPDS Self Harm Result Unrecognized value Comments No Sex and Gender Information Value Date Recorded Sex Assigned at Female 07/08/2024 8:21 AM CDT Legal Sex Female 5:09 PM CDT Gender Identity Not on file Sexual Orientation Not on file COVID-19 Exposure Response Date Recorded In the last 10 days, have yo u been in contact with someone who was confirmed or suspected to have Coronavirus/COVID-19? No / Unsure 10/17/2022 9:16 PM GLOBAL CATEGORY MANAGER documented as of this encounter Functional Status * RETIRED Are you deaf or do you have serious difficulty hearing Answer Date of Assessment Author Status No 10/17/2022 9:21 PM GLOBAL CATEGORY MANAGER Activ e * RETIRED Are you blind or do you have serious difficulty seeing, even when wearing glasses? Answer Date of Assessment Author Status No 10/17/2022 9:21 PM GLOBAL CATEGORY MANAGER Activ e * Do you have serious difficulty walking or climbing stairs? Answer Date of Assessment Author Status No 10/17/2022 9:21 PM GLOBAL CATEGORY MANAGER Carolynn Snider RN Active * Do you have difficulty dressing or bathing? Answer Date of Assessment Author Status No 10/17/2022 9:21 PM GLOBAL CATEGORY MANAGER Carolynn Snider RN Active * Because of a physical, mental, or emotional condition, do you have difficulty doing errands alone such as visiting a doctor's office or shopping? Answer Date of Assessment Author Status No 10/17/2022 9:21 PM GLOBAL CATEGORY MANAGER Carolynn Snider RN Active documented as of this encounter Mental Status * Because of a physical, mental, or emotional condition, do you have serious difficulty concentrating, remembering, or making decisions? Answer Entry Date Author Status No 10/17/2022 9:21 PM GLOBAL CATEGORY MANAGER Carolynn Snider RN Active documented in this encounter Plan of Treatment Upcoming Encounters Date Type Department Care Team (Late st Contact Info) Description 11/17/2025 3:45 PM GLOBAL CATEGORY MANAGER Appointment [facility] [place] [address] Armin Schuster W, CNM [address] [place] [address] Melissa Monique, [place] [address] documented as of this encounter Visit Diagnoses Not on filedocumented in this encounter Care Teams Denture Packer Relationship Specialty Start Date End Date Stone Bailey MD [address] [place] [id number] PCP - General FAMILY PRACTICE 12/05/20 06/25/23 Jenna Olson MD [address] [place] [address] PCP - General FAMILY PRACTICE 06/26/23 documented as of this encounter
--- OUTSIDE RECORDS SUMMARY | 2025-10-09 18:55 | XMS_ITS | Clinical Summary ---
Author Organization [facility] Address [address] [place] [address] Care Team Providers Care Timing Inspector Name Role Phone Jenna Olson MD Primary Care Provider [phone] Allergies Active Allergy Reactions Criticality Noted Date Comments Metronidazole Other (see comment) Low 12/05/2020 Topical yeast infection. Iodine Itching 07/07/2024 Pt reports having a reaction after contrast dye Milk (Cow) Unknown,Other (see comment) Low 05/28/2024 Penicillin G Benzathine Hives Low 12/05/2020 Progesterone Rash Low 06/30/2024 Sulfa Antibiotics Hives Low 12/05/2020 Wheat Unknown,Other (see comment) Low 05/28/2024 Medications vitamin, low iron, ( VITAMIN WITH IRON) 27-0.8 MG tablet Take 1 tablet by mouth daily. Active cetirizine (ZYRTEC) 10 MG chewable tablet Chew 10 mg by mouth daily. Active fluticasone propionate (FLONASE) 50 MCG/ACT nasal spray 1 spray by Nasal route daily. Active methylPREDNISolone, KINGSLEY, (MEDROL DOSEPAK) 4 MG tablet Use per packet instructions . Can take 6 TABLETS ON DAY ONE, 5 TABLETS DAY TWO, 4 TABLETS DAY THREE, 3 TABLETS DAY FOUR, 2 TABLETS DAY FIVE, AND 1 TABLET DAY SIX 1 each 4 Active famotidine (PEPCID) 20 MG tablet Take 1 tablet (20 mg total) by mouth 2 (two) times daily as needed. 20 tablet 4 Active ondansetron (ZOFRAN-ODT) 4 MG disintegrating tablet Take 1 tablet (4 mg total) by mouth every 8 (eight) hours as needed. 10 tablet Active Active Problems Problem Noted Date Diagnosed Date Uterine size-date discrepancy 05/28/2024 Overview (06/30/2024): 08/28 growth at 24.5% 08/28 growth at 24.5% 10/17/2022 Follicular cyst of ovary 10/13/2018 Overview (06/30/2024): Ovarian cyst; Progress: Stable Added By: Asher Wild Add to Current Problems: NO ProblemStatus: Resolve Ovarian cyst; Location: None Progress: Stable Added By: Asher Wild Add to Current Problems: YES ProblemStatus: Current Ovarian cyst; Progress: Stable Added By: Asher Wild Add to Current Problems: NO ProblemStatus: Resolve Ovarian cyst; Location: None Progress: Stable Added By: Asher Wild Add to Current Problems: YES ProblemStatus: Current Female genital symptoms 09/02/2018 Overview (06/30/2024): Pelvic pain; Progress: Stable Added By: Asher Wild Add to Current Problems: NO ProblemStatus: Resolve Pelvic pain; Progress: Stable Added By: Asher Wild Add to Current Problems: NO ProblemStatus: Resolve Pelvic pain; Progress: Stable Added By: Asher Wild Add to Current Problems: NO ProblemStatus: Resolve Acute vaginitis 09/02/2018 Overview (06/30/2024): Acute vaginitis; Progress: Stable Added By: Asher Wild Add to Current Problems: NO ProblemStatus: Resolve Acute vaginitis; Progress: Stable Added By: Asher Wild Add to Current Problems: NO ProblemStatus: Resolve Menstrual cycle disorder 09/02/2018 Overview (06/30/2024): Other specified irregular menstruation; Progress: Stable Added By: Asher Wild Add to Current Problems: NO ProblemStatus: Resolve Irregular menstruation, unspecified; Progress: Stable Added By: Asher Wild Add to Current Problems: NO ProblemStatus: Resolve Irregular periods 09/02/2018 Overview (06/30/2024): Other specified irregular menstruation; Progress: Stable Added By: Asher iWld Add to Current Problems: NO ProblemStatus: Resolve Other specified irregular menstruation; Progress: Stable Added By: Asher Wild Add to Current Problems: NO ProblemStatus: Resolve Acute left ankle pain 03/21/2017 Comments Yes Encounters Date Type Department Care Team Description 09/14/2025 Therapy Plan [facility] [place] [address] Melissa Monique PT 08/23/2025 2:21 PM CDT - 08/23/2025 11:59 PM CDT Hospital Encounter [facility] [place] [address] Pieter Haley PA Discharge Disposition: Home or Self Care (Routine Discharge) 08/23/2025 Travel 08/19/2025 5:33 PM CDT - 08/19/2025 10:27 PM CDT Emergency [facility] [place] [address] Radha Crystal PA [place], Michael, PA Abdominal Pain Discharge Disposition: Home or Self Care (Routine Discharge) 08/19/2025 Travel from Last 3 Months Immunizations Immunization Administration Dates Next Due Tdap (Boostrix) 10/19/2022 Family History Medical History Relation Comments Heart Father right sided hear t fialure- medication induced Hypertension Maternal Grandmother Thyroid Mother Cancer Paternal Grandfather Relation Status Comments Father Alive Maternal Grandfather Alive Maternal Grandmother Alive Mother Alive Paternal Grandfather Alive Paternal Grandmother Alive Social History Tobacco Use Types Packs/Day Years Used Date Smoking Tobacco: Never Smokeless Tobacco: Never Tobacco Cessation:Counseling Given: Not Answered Alcohol Use Standard Drinks/Week Comments Not Currently [...] EPDS Self Harm Result Unrecognized value Comments Yes Sex and Gender Information Value Date Recorded Sex Assigned at Female 07/08/2024 8:21 AM CDT Legal Sex Female 5:09 PM CDT Gender Identity Not on file Sexual Orientation Not on file Last Filed Vital Signs Vital Sign Reading Time Taken Comments Blood Pressure 138/78 08/19/2025 9:45 PM CDT Pulse 79 08/19/2025 9:45 PM CDT Temperature 36.4 C (97.5 F) 08/19/2025 4:44 PM CDT Respiratory Rate 18 08/19/2025 4:44 PM CDT Oxygen Saturation 100% 08/19/2025 9:45 PM CDT Inhaled Oxygen Concentration - - Weight 113.5 kg (250 lb 3.6 oz) 08/19/2025 4:44 PM CDT Height 157.5 cm (5' 2) 08/19/2025 4:44 PM CDT Body Mass Index 45.77 08/19/2025 4:44 PM CDT Plan of Treatment Upcoming Encounters Date Type Department Care Team (Late st Contact Info) Description 11/17/2025 3:45 PM AED TRAINER Appointment [facility] [place] [address] [place] [address] Armin Schuster W, CNM [address], [place] [id number] Melissa Monique L, [place] [address] Health Maintenance Due Date Last Done Comments Cervical Cancer Screening Pap Smear (Age 21 to 29) Every 3 Years 1996 Cervical Cancer Screening 1996 Annual Physical 1999 Hepatitis C 2014 HPV Vaccines (1 - 3-dose SCDM series) 2023 COVID-19 Vaccine ( - 2024- season) 2025 Influenza Adult (#1) 2025 DTaP, Tdap and Td Vaccines (3 - Td or Tdap) 10/19/2032 10/19/2022, 06/29/1997, 06/29/1997, Additional history exists RSV Immunization or 60+ Years (1 - 1-dose 75+ series) 2071 Hepatitis B Vaccines Completed 06/29/1997, 1996, 1996 Hepatitis A Vaccines Aged Out No long er eligible based on patient's age to complete this topic Meningococcal B Vaccine Aged Out No l onger eligible based on patient's age to complete this topic Meningococcal Vaccine Aged Out No cliff parvin eligible based on patient's age to complete this topic Pneumococcal Vaccine: Pediatrics (0 to 5 Years) and At-Risk Patients (6 to 49 Years) Aged Out No longer eligible based on patient's age to complete this topic RSV Immunizations Under 20 Months Aged Out No longer eligible based on patient's age to complete this topic Procedures Procedure Name Priority Date/Time Associated Diagnosis Comments HC HCG QN Routine 08/23/2025 2:24 PM CDT Vaginal bleeding in , first trimester (HHS/HCC) US OB TRANSVAG STAT 08/19/2025 8:41 PM CDT LIPASE STAT 08/19/2025 6:14 PM CDT HC HCG QN STAT 08/19/2025 6:14 PM CDT COMPREHENSIVE METABOLIC PANEL STAT 08/19/2025 6:14 PM CDT CBC W/DIFF AUTOMATED STAT 08/19/2025 6:14 PM CDT HC BLOOD TYPING ABO STAT 08/19/2025 5 :40 PM CDT HC URINALYSIS AUTO W/O MICRO STAT 08/19/2025 5:40 PM CDT from Last 3 Months Results * HCG QUANT (SERUM)-CHORIONIC GONADOTROPIN (08/23/2025 2:24 PM CDT) Only the most recent of2 resultswithin the time period is included. HCG QUANTITATIVE 44,921 MIU/ML 08/23/20 25 3:15 PM CDT [facility] Comment: WEEKS OF REFERENCE RANGES Non- female < or = 2 0.2 - 1 5 - 50 1 - 2 50 - 500 2 - 3 100 - 5000 3 - 4 500 - 10,000 4 - 5 1000 - 50,000 5 - 6 10,000 - 100,000 6 - 8 15,000 - 200,000 2 - 3 MONTHS 10,000 - 100,000 08/23/2025 2:24 PM CDT [facility] Final Resul t [facility] [address] [place] [address], * US OB TRANSVAG (08/19/2025 8:41 PM CDT) Anatomical Region Laterality Modality Abdomen, Pelvis Ultrasound 08/19/2025 8:42 PM CDT Impressions 08/19/2025 8:49 PM CDT IMPRESSION: 1. Single, viable intrauterine with detected cardiac activity. As per technologist notation, however, cardiac activity was difficultly detected with low heart rate measuring 106 bpm. Obstetric consultation and attention on short-term follow-up ultrasound are recommended. 2. Estimated gestational age by ultrasound is 6 weeks and 0 days. Estimated date of delivery by ultrasound is 04/14/2026. 3. Right ovarian corpus luteum cyst as measured above. 4. Left paraovarian cyst versus less likely pocket of free fluid as measured above. 5. Small-moderate free pelvic fluid. Referred By: Interpreted By: Dino Fofana MD, 08/19/2025 8:42 PM Narrative 08/19/2025 8:[address] PM [address] [address] Examination: US OB TRANSVAGINAL Exam Date/Time: 08/19/2025 8:05 PM Reason For Exam: first trimester , cramping, rule out ectopic Comparison: No existing relevant imaging study available. Technique: Transvaginal ultrasound evaluation of the pelvic contents was performed for analysis of grayscale and color Doppler imaging characteristics. Findings: The uterus measures 9.1 x 5.4 x 5.4 cm. Intrauterine gestational sac with pole and detected cardiac activity 106 bpm (difficulty detected as per technologist notation). [place]-rump length measures 4 mm corresponding to gestational age of 6 weeks and 0 days. Yolk sac is visualized. Right ovary measures 3.0 x 1.8 x 2.0 cm. Left ovary measures 2.3 x 0.9 x 1.9 cm. Normal flow is seen to bilateral ovaries. Right ovarian corpus luteum cyst measuring 2.2 x 1.5 x 1.5 cm. Left paraovarian cyst versus less likely pocket of free fluid measuring 2.3 x 1.4 x 2.1 cm. Small-moderate amount of free pelvic fluid. Procedure Note Dino Fofana MD - 08/19/2025 [facility] [address] [place], [place] [address] Examination: US OB TRANSVAGINAL Exam Date/Time: 08/19/2025 8:05 PM Reason For Exam: first trimester , cramping, rule out ectopic Comparison: No existing relevant imaging study available. Technique: Transvaginal ultrasound evaluation of the pelvic contents wasperformed for analysis of grayscale and color Doppler imagingcharacteristics. Findings: The uterus measures 9.1 x 5.4 x 5.4 cm. Intrauterine gestational sac withfetal pole and detected cardiac activity 106 bpm (difficulty detected asper technologist notation). [place]-rump length measures 4 mm correspondingto gestational age of 6 weeks and 0 days. Yolk sac is visualized. Right ovary measures 3.0 x 1.8 x 2.0 cm. Left ovary measures 2.3 x 0.9 x1.9 cm. Normal flow is seen to bilateral ovaries. Right ovarian corpusluteum cyst measuring 2.2 x 1.5 x 1.5 cm. Left paraovarian cyst versusless likely pocket of free fluid measuring 2.3 x 1.4 x 2.1 cm. Small-moderate amount of free pelvic fluid. IMPRESSION: 1. Single, viable intrauterine with detected cardiac activity.As per technologist notation, however, cardiac activity was difficultlydetected with low heart rate measuring 106 bpm. Obstetric consultationand attention on short-term follow-up ultrasound are recommended. 2. Estimated gestational age by ultrasound is 6 weeks and 0 days.Estimated date of delivery by ultrasound is 04/14/2026. 3. Right ovarian corpus luteum cyst as measured above. 4. Left paraovarian cyst versus less likely pocket of free fluid asmeasured above. 5. Small-moderate free pelvic fluid. Referred By: Interpreted By: Dino Fofana MD, 08/19/2025 8:42 PM us Pieter Haley PA ULTRASOUND Final Resul t * (ABNORMAL) COMPREHENSIVE METABOLIC PANEL (08/19/2025 6:14 PM CDT) [facility] GLUCOSE 93 70 - 99 MG/DL 08/19/2025 6:54 PM CDT [facility] BUN 6(L) 7 - 18 MG/DL 08/19/2025 6:54 PM CDT [facility] CREATININE S/P/B 0.56 0.55 - 1.02 MG/DL 08/19/2025 6:54 PM CDT [facility] SODIUM S/P/B 139 136 - 145 MMOL/L 08/19/2025 6:54 PM CDT [facility] POTASSIUM S/P/B 4.1 3.5 - 5.1 MMOL/L 08/19/2025 6:54 PM CDT [facility] CHLORIDE S/P/B 106 97 - 115 MMOL/L 08/19/2025 6:54 PM CDT [facility] CO2 24.8 21 - 32 MMOL/L 08/19/2025 6:54 PM CDT [facility] CALCIUM S/P/B 9.4 8.5 - 10.1 MG/DL 08/19/2025 6:54 PM CDT [facility] BILIRUBIN TOTAL S/P/B 0.5 0.2 - 1.2 MG/DL 08/19/2025 6:54 PM CDT [facility] Comment: THIS ASSAY IS NOT RECOMMENDED FOR PATIENTS UNDERGOING TREATMENT WITH ELTROMBOPAG DUE TO THE POTENTIAL FOR FALSELY ELEVATED RESULTS. TOTAL PROTEIN S/P/B 7.4 6.4 - 8.2 G/DL 08/19/2025 6:54 PM CDT [facility] ALBUMIN S/P/B 3.7 3.4 - 5.0 G/DL 08/19/2025 6:54 PM CDT [facility] AST 11(L) 15 - 37 U/L 08/19/2025 6:54 PM CDT [facility] ALT 35 14 - 55 U/L 08/19/2025 6:54 PM CDT [facility] ALKALINE PHOSPHATASE S/P/B 67 50 - 136 U/L 08/19/2025 6:54 PM CDT [facility] ANION GAP 8.2 2 - 10 MMOL/L 08/19/2025 6:54 PM CDT [facility] BUN CREATININE RATIO 10.8 6 - 26 08/19/2025 6:54 PM CDT [facility] A/G RATIO 1.0 1.0 - 2.0 RATIO 08/19/2025 6:54 PM CDT [facility] GFR ESTIMATE >90 >90 ML/MIN/1.7 3 M2 08/19/2025 6:54 PM CDT [facility] Comment: NOTE: eGFR is not calculated for patients <18 years of age or gender unknown. This is an estimated GFR calculation using the new CKD EPI creatinine equation without race and so does not require a correction factor for race. This estimated GFR should not be used for calculating drug doses. 08/19/2025 6:14 PM CDT [facility] Final Resul t [facility] [address] [place] [address], * CBC W/DIFF AUTOMATED (08/19/2025 6:14 PM CDT) WBC 10.18 4.5 - 11.0 x10'3/uL 08/19/2025 6:45 PM CDT [facility] RBC 4.81 4.20 - 5.40 x10'6/uL 08/19/2025 6:45 PM CDT [facility] HGB 13.7 12.0 - 16.0 G/DL 08/19/2025 6:45 PM CDT [facility] HCT 40.7 38.0 - 48.0 % 08/19/2025 6:45 PM CDT [facility] MCV 84.6 81.0 - 99.0 FL 08/19/2025 6:45 PM CDT [facility] MCH 28.5 27.0 - 31.0 PG 08/19/2025 6:45 PM CDT [facility] MCHC 33.7 32.0 - 36.0 G/DL 08/19/2025 6:45 PM CDT [facility] RDW 12.8 11.5 - 14.5 % 08/19/2025 6:45 PM CDT [facility] PLT 256 130 - 400 x10'3/uL 08/19/2025 6:45 PM CDT [facility] MPV 11.2 9.3 - 12.2 FL 08/19/2025 6:45 PM CDT [facility] DIFFERENTIAL TYPE AUTOMATED DIFFERENTIAL 08/19/2025 6:45 PM CDT [facility] NEUTROPHILS % 70.8 % 08/19/2025 6:45 PM CDT [facility] LYMPHOCYTES % 19.9 % 08/19/2025 6:45 PM CDT [facility] MONOCYTES % 7.5 % 08/19/2025 6:45 PM CDT [facility] EOSINOPHILS 0.9 % 08/19/2025 6:45 PM CDT [facility] BASOPHILS 0.4 % 08/19/2025 6:45 PM CDT [facility] IMMATURE GRANS % 0.5 % 08/19/20 6:45 PM CDT [facility] ABS. NEUTROPHILS 7.21 1.80 - 7.70 x10'3/uL 08/19/2025 6:45 PM CDT [facility] ABS. LYMPHOCYTES 2.03 1.00 - 4.80 x10'3/uL 08/19/2025 6:45 PM CDT [facility] ABS. MONOCYTES 0.76 0.24 - 0.86 x10'3/uL 08/19/2025 6:45 PM CDT [facility] ABS. EOSINOPHILS 0.09 0.04 - 0.36 x10'3/uL 08/19/2025 6:45 PM CDT [facility] ABS. BASOPHILS 0.04 0.01 - 0.08 x10'3/uL 08/19/2025 6:45 PM CDT [facility] ABS. IMMATURE GRANULOCYTES 0.05 0.00 - 0.49 x10'3/uL 08/19/2025 6:45 PM CDT [facility] 08/19/2025 6:14 PM CDT us [facility] Final Resul t [facility] [address] [place] [address], * LIPASE (08/19/2025 6:14 PM CDT) LIPASE 22 13 - 75 UNITS/L 08/19/2025 6:54 PM CDT [facility] 08/19/2025 6:14 PM CDT us [facility] Final Resul t [facility] [address] [place] [address], [place] [phone] * (ABNORMAL) URINALYSIS (08/19/2025 5:40 PM CDT) SPECIMEN TYPE URINE CLEAN CATCH 08/19/2025 6:19 PM CDT [facility] COLOR (U) COLORLESS 08/19/2025 6:37 PM CDT [facility] TRANSPARENCY CLEAR 08/19/2025 6:37 PM CDT [facility] SPECIFIC GRAVITY (U) 1.007 1.001 - 1.030 08/19/2025 6:37 PM CDT [facility] U PH 6.5 5.0 - 9.0 08/19/2025 6:37 PM CDT [facility] LEUKOCYTES (U) 25(A) NEGATIVE 08/19/2025 6:37 PM CDT [facility] NITRITES NEGATIVE NEGATIVE 08/19/2025 6:37 PM CDT [facility] PROTEIN RANDOM (U) NEGATIVE <30 MG/DL 08/19/2025 6:37 PM CDT [facility] GLUCOSE (U) NORMAL NORMAL MG/DL 08/19/2025 6:37 PM CDT [facility] KETONES MG/DL (U) NEGATIVE NEGATIVE MG/DL 08/19/2025 6:37 PM CDT [facility] UROBILINOGEN NORMAL NORMAL MG/DL 08/19/2025 6:37 PM CDT [facility] BILIRUBIN (U) NEGATIVE NEGATIVE MG/DL 08/19/2025 6:37 PM CDT [facility] BLOOD (U) NEGATIVE NEGATIVE 08/19/2025 6:37 PM CDT [facility] WBC/HPF 2 <6 /HPF 08/19/2025 6:37 PM CDT [facility] RBC/HPF 1 <6 /HPF 08/19/2025 6:37 PM CDT [facility] SQUAMOUS EPITHELIALS RARE /HPF 08/19/2025 6:37 PM CDT [facility] URINE SPECIMEN OBTAINED BY CLEAN CATCH PROCEDURE / Unknown 08/19/2025 5:40 PM CDT us [facility] URINE ORDERABLES Final Resu lt [facility] [address] [place] [address], [place] [phone] * BLOOD TYPING, ABO AND RH (08/19/2025 5:40 PM CDT) ABO/RH O POSITIVE 08/19/2025 6:58 PM CDT [facility] 08/19/2025 5:40 PM CDT us [facility] BLOOD BANK TEST ORDERABLES Final Result [facility] [address] [place] [address], [place] [phone] from Last 3 Months Insurance [id number] Advance Directives * Full Code (Latest Code Status on File) Date Activated Date Inactivated Comments 10/17/2022 8:23 PM 10/18/2022 5:39 PM Care Teams Timing Inspector Relationship Specialty Start Date End Date Jenna Olson MD [address] [place] [address] PCP - General FAMILY PRACTICE 06/26/23
--- OUTSIDE RECORDS SUMMARY | 2025-10-09 18:55 | XMS_ITS | Clinical Summary ---
Author Organization [facility] [place] [address] Address [address] [place] [address] Care Team Providers Care Demand Manager Name Role Phone Jenna Olson MD Primary Care Provider [phone] Allergies Active Allergy Reactions Criticality Noted Date Comments Iodinated Contrast Media Itching,Chest tightness Medium 07/14/2024 Metronidazole Other (See comments) Low 12/05/2020 Topical yeast infection. Milk Other (See comments) Low 05/28/2024 Penicillins Hives,Rash Medium 03/21/2017 Progesterone Hives Medium 05/28/2024 Sulfa (Sulfonamide Antibiotics) Hives,Rash Medium 03/21/2017 Wheat Other (See comments) Low 05/28/2024 Medications vit-iron fum-folic ( Vitamin) 27 mg iron- 800 mcg tablet Take 1 tablet by mouth daily Active ondansetron ODT (ZOFRAN-ODT) 4 mg disintegrating tabletIndications: Nausea Take 1 tablet (4 mg total) by mouth every 8 (eight) hours as needed for nausea or vomiting 10 tablet 06/25/20 23 Active Additional Information Patient not taking.Reported on 06/14/2025 fluticasone propionate (FLONASE) 50 mcg/actuation nasal spray 1 {spray} by nasal route. Active escitalopram (LEXAPRO) 10 mg tablet TAKE 1/2 TABLET DAILY FOR 7 DAYS THEN TAKE 1 TABLET DAILY 07/10/20 23 Active meclizine (ANTIVERT) 12.5 mg tablet Take 1 tablet (12.5 mg total) by mouth 3 (three) times a day as needed for dizziness Active etonogestreL-ethin yl estradioL (NuvaRing) 0.12-0.015 mg/24 hr vaginal ring insert 1 ring vaginally leave for 21 days, remove for one week 12/09/19 24 Active omeprazole (PriLOSEC) 20 mg capsule Take 1 capsule (20 mg total) by mouth daily 30 capsule 07/14/20 24 Active Additional Information Patient not taking.Reported on 06/14/2025 ibuprofen (ADVIL,MOTRIN) 800 mg tablet Take 1 tablet (800 mg total) by mouth 3 (three) times a day 21 tablet 07/14/20 24 Active Active Problems Problem Noted Date Diagnosed Date Uterine size-date discrepancy 05/28/2024 Overview (05/28/2024): 08/28 growth at 24.5% BMI 40.0-44.9, adult 10/02/2022 Follicular cyst of ovary 10/13/2018 Overview (05/28/2024): Ovarian cyst; Progress: Stable Added By: Asher Wild Add to Current Problems: NO ProblemStatus: Resolve Ovarian cyst; Location: None Progress: Stable Added By: Asher Wild Add to Current Problems: YES ProblemStatus: Current Menstrual cycle disorder 09/02/2018 Overview (05/28/2024): Other specified irregular menstruation; Progress: Stable Added By: Asher Wild Add to Current Problems: NO ProblemStatus: Resolve Irregular menstruation, unspecified; Progress: Stable Added By: Asher Wild Add to Current Problems: NO ProblemStatus: Resolve Acute vaginitis 09/02/2018 Overview (05/28/2024): Acute vaginitis; Progress: Stable Added By: Asher Wild Add to Current Problems: NO ProblemStatus: Resolve Female genital symptoms 09/02/2018 Overview (05/28/2024): Pelvic pain; Progress: Stable Added By: Asher Wild Add to Current Problems: NO ProblemStatus: Resolve Irregular periods 09/02/2018 Overview (05/28/2024): Other specified irregular menstruation; Progress: Stable Added By: Asher Wild Add to Current Problems: NO ProblemStatus: Resolve Acute left ankle pain 03/21/2017 Immunizations Immunization Administration Dates Next Due DTP / HiB 06/29/1997,04/19/1997,01/27/1997 Hep B, Adolescent or Pediatric 06/29/1997,1996,1996 OPV 06/29/1997,04/19/1997,01/27/1997 Tdap 10/19/2022 Social History Tobacco Use Types Packs/Day Years Used Date Smoking Tobacco: Never Smokeless Tobacco: Never Tobacco Cessation:Counseling Given: Not Answered Personal Safety Answer Date Recorded Have you ever been in or are you currently in a harmful physical or emotional relationship or is someone making you feel afraid or unsafe? Denies 07/14/2024 Comments No Sex and Gender Information Value Date Recorded Sex Assigned at Not on file Legal Sex Female 10:37 PM [employer] Gender Identity Not on file Sexual Orientation Not on file Last Filed Vital Signs Vital Sign Reading Time Taken Comments Blood Pressure 126/78 06/14/2025 3:22 PM CDT Pulse 68 06/14/2025 3:22 PM CDT Temperature 36.5 C (97.7 F) 06/14/2025 3:22 PM CDT Respiratory Rate 20 06/14/2025 3:22 PM CDT Oxygen Saturation 98% 06/14/2025 3:22 PM CDT Inhaled Oxygen Concentration - - Weight 114.8 kg (253 lb) 06/14/2025 3:22 PM CDT Height 157.5 cm (5' 2) 07/14/2024 2:48 PM CDT Body Mass Index 46.27 07/14/2024 2:48 PM CDT Plan of Treatment Health Maintenance Due Date Last Done Comments Cervical Cancer Screening 1996 Depression Screening 1996 Hepatitis C Screening 1996 Varicella Vaccines (1 of 2 - 13+ 2-dose series) 2009 Regular Well Visit/Exam 18-64 2014 HPV Vaccines (1 - 3-dose SCDM series) 2023 Covid-19 Vaccine (3 season) 2025 01/31/2021, 01/03/2021 Influenza Vaccine (#1) 2025 DTaP/Tdap/Td Vaccine (5 - Td or Tdap) 10/19/2032 10/19/2022, 06/29/1997, 04/19/1997, Additional history exists Hepatitis B Screening Completed 06/29/1997 , 1996, 1996 Pneumococcal vaccine <65 Aged Out No longer eligible based on patient's age to complete this topic Insurance [facility] PPO [place] Care Teams Demand Manager Relationship Specialty Start Date End Date Jenna Olson MD PCP - General Dairy Clerk 03/28/23
[2025-10-09 19:03] VITALS: BP 107/78; PULSE 81; RESP 18; TEMP 36.6; O2SAT 100
--- NOTE | 2025-10-09 19:19 | ED.LOWEXIN ---
HPI - Extremity Injury (Lower) General Chief Complaint: Extremity Injury, Lower Stated Complaint: fall Time Seen by Provider: 10/09/25 19:05 Source: patient and RN notes reviewed Mode of arrival: wheelchair Limitations: no limitations History of Present Illness HPI Narrative: 29 year old female patient presents today complaining of left ankle pain. Just prior to arrival tonight, after arrival at work, patient twisted her ankle in a hole outside. She then fell onto her knees and is not able to weight bear. Denies numbness or tingling. Currently rates her pain at rest 8/10, which increases with weightbearing. She has applied ice prior to arrival. Currently 14 weeks . Related Data Allergies Allergy/AdvReac Type Severity Reaction Status Date / Time Penicillins Allergy Unknown Rash Verified 05/05/24 08:52 Sulfa (Sulfonamide Allergy Unknown Rash Verified 05/05/24 08:52 Antibiotics) metronidazole (From Flagyl) Allergy Rash Verified 05/05/24 08:52 PMFSH Past Medical History Medical History Right knee injury Right knee pain No pertinent past medical history Surgical History Surgical History H/O wisdom tooth extraction No pertinent past surgical history Family History Family History Mother No pertinent past medical history Unknown Hypertension Heart disease Breast cancer Social History Social History Social History: caffeine use Alcohol intake: current Drinks per week: 1 Substance use: never Living arrangements: with family Occupation/Education: occupation Additional occupation/education comments: [employer] Gender identity (if verbalized by the patient): Female Spiritual care concerns: No Comments At time of signature, I have reviewed and agree with nursing past medical, surgical, social and family history unless otherwise noted. Please see nursing chart for further information. There is no relevant family history pertinent to the presenting complaint Exam Narrative: GENERAL: Well-appearing, well-nourished, and in no acute distress. HEAD: Normocephalic, atraumatic. EYES: EOMI. No redness or drainage. Conjunctivae normal. ENT: Mucous membranes pink and moist. NECK: Normal AROM. CHEST: No respiratory distress. EXTREMITIES: Left ankle: Tenderness and mild to moderate edema to the lateral malleolus. No tenderness or edema medially. No tenderness or edema to the foot. Distal sensation intact in all 5 toes. Capillary refill normal. Pedal pulse normal. Range of motion of the ankle limited due to pain. SKIN: Warm, dry, no rash. Capillary refill normal. Normal skin turgor. NEURO: No focal deficits. Alert and oriented x3. PSYCH: Normal affect. No signs of depression or anxiety. Course Course Level of Care: Express Care Visit Vital Signs Vital signs: Vital Signs Temperature 97.8 F 10/09/25 19:03 Pulse Rate 81 10/09/25 19:03 Respiratory Rate 18 10/09/25 19:03 Blood Pressure 107/78 10/09/25 19:03 Pulse Oximetry 100 10/09/25 19:03 Oxygen Delivery Room Air 10/09/25 19:03 Temperature 97.8 F 10/09/25 19:03 Pulse Rate 81 10/09/25 19:03 Respiratory Rate 18 10/09/25 19:03 Blood Pressure 107/78 10/09/25 19:03 Pulse Oximetry 100 10/09/25 19:03 Oxygen Delivery Room Air 10/09/25 19:03 Reviewed MDM - Extremity Injury (Lower) MDM Narrative Medical decision making narrative: 29 year old female patient presents today complaining of left ankle pain. Just prior to arrival tonight, after arrival at work, patient twisted her ankle in a hole outside. She then fell onto her knees and is not able to weight bear. Denies numbness or tingling. Currently rates her pain at rest 8/10, which increases with weightbearing. She has applied ice prior to arrival. Currently 14 weeks . Upon exam, Tenderness and mild to moderate edema to the lateral malleolus. No tenderness or edema medially. No tenderness or edema to the foot. Distal sensation intact in all 5 toes. Capillary refill normal. Pedal pulse normal. Range of motion of the ankle limited due to pain. X-ray negative for fracture. Roland wrap applied, crutches provided. Recommend PCP or orthopedic follow-up in 7-10 days if symptoms are not improving. Patient agrees with plan. Vital signs stable. Anticipatory guidance given Differential Diagnosis Differential diagnosis: Likely ankle sprain and strain and ankle fracture Imaging Data Radiologist's impression: ITS Impressions Ankle X-Ray 10/09/25 19:19 Impression: No acute fracture or malalignment. Critical Care Time Critical Care Time Critical Care Time: No Discharge Plan Discharge Clinical Impression: Left ankle sprain Qualifiers: Encounter type: initial encounter Involved ligament of ankle: unspecified ligament Qualified Code(s): S93.402A - Sprain of unspecified ligament of left ankle, initial encounter Patient Disposition: Home Condition: Stable Instructions: Ankle Sprain (DC) Additional Instructions: Your x-ray is negative for fracture. Wear the Roland wrap for compression. Elevate and ice the ankle. Take Tylenol for pain. Follow-up with orthopedics or your PCP in 7-10 days if symptoms are not improving. Patient Language: [place] Prescriptions: No Action meclizine 25 mg tablet 25 mg PO BID PRN (Reason: motion sickness) Qty: 14 0RF Follow-up/Referrals: Maida Mcginnis APRN [Primary Care Provider, Orthopedics] Derrick Pierson MD [Physician, Orthopedics] Time of Disposition: 19:27
== END 2025-10-09 19:37 | disposition home or self-care (01) ==
PROVIDERS: Emergency Provider Nurse Practitioner; PCP Nurse Practitioner Family
DX: S93.402A Sprain of unspecified ligament of left ankle, initial encounter (principal); X50.1XXA Overexertion from prolonged static or awkward postures, initial encounter
CPT/HCPCS: 73610; 99213; G0463